=== PATIENT | female | born 1965 | race African-American/Black ===

== ENCOUNTER → 2016-10-25 | Outpatient (CLI) | payer OTHER ==
[~2016-10-25] MED LIST: ALUM5LIQ PO; HYDR-3533 PO; IBUP400T20 PO; METH125I2 IM; PRED1 PO; ROBA750T PO
[2016-10-25 16:47] LABS: AUTOMATED NEUTROPHIL # 4.3 TH/MM3 (1.8-7.7); BASOPHIL % 0.4 % (0.0-2.0); EOSINOPHIL % 0.1 % (0.0-4.0); HEMATOCRIT 38.1 % (35.0-46.0); HEMO FLAGS DIFF FINAL; LYMPH % 15.6 % (9.0-44.0); LYMPHOCYTE # 0.8 TH/MM3 (1.0-4.8); MEAN CELL VOLUME 87.5 FL (80.0-100.0); MEAN CORPUSCULAR HEMOGLOBIN 28.8 PG (27.0-34.0); MEAN CORPUSCULAR HGB CONC 32.9 % (32.0-36.0); MONO % 1.3 % (0.0-8.0); NEUT % 82.6 % (16.0-70.0); PLATELET COUNT 279 TH/MM3 (150-450); RED BLOOD COUNT 4.36 MIL/MM3 (4.00-5.30); RED CELL DISTRIBUTION WIDTH 13.2 % (11.6-17.2); WHITE BLOOD COUNT 5.2 TH/MM3 (4.0-11.0)
[2016-10-25 17:08] LABS: ALT (GPT) 22 U/L (10-53); ANION GAP 10 MEQ/L (5-15); AST (GOT) 12 U/L (15-37); BICARBONATE 23.8 MEQ/L (21.0-32.0); BLOOD UREA NITROGEN 17 MG/DL (7-18); CHLORIDE 107 MEQ/L (98-107); GLOMERULAR FILTRATION RATE 68 ML/MIN (>89); GLUCOSE,FASTING 122 MG/DL (74-99); POTASSIUM 4.1 MEQ/L (3.5-5.1); RHEUMATOID FACTOR TRIGGER LESS THAN 10.0 IU/ML (0.0-14.9); SODIUM (NA) 141 MEQ/L (136-145)
[2016-10-25 17:17] LABS: ALKALINE PHOSPHATASE 69 U/L (45-117); HDL CHOLESTEROL 75.5 MG/DL (40.0-60.0); LDL CHOLESTEROL 137 MG/DL (0-99); TOTAL BILIRUBIN ADULT 0.3 MG/DL (0.2-1.0)
== END ==
LOC: CLAB 15:32
PROVIDERS: ATTEND Family Medicine
DX: G43.909 Migraine, unspecified, not intractable, without status migrainosus (principal); R63.0 Anorexia; E66.9 Obesity, unspecified
CPT/HCPCS: 36415; 80053; 80061; 84443; 85025; 86430

== ENCOUNTER → 2016-12-06 | Outpatient (CLI) | payer OTHER ==
[~2016-12-06] MED LIST changes: -ALUM5LIQ PO; -HYDR-3533 PO
[2016-12-06 16:48] LABS: HEMOGLOBIN A1a 1.1 %; HEMOGLOBIN A1b 0.8 %; HEMOGLOBIN Ao 85.6 %; HEMOGLOBIN LA1C 1.8 %; HEMOGLOBIN P3 3.5 %
== END ==
LOC: CLAB 10:33
PROVIDERS: ATTEND Family Medicine
DX: E03.9 Hypothyroidism, unspecified (principal); R73.01 Impaired fasting glucose
CPT/HCPCS: 36415; 83036; 84443

== ENCOUNTER 2017-04-12 20:44 | Observation (INO) | payer OTHER ==
[~2017-04-12] VITALS: Ht 170.2 cm; Wt 95.0 kg
[~2017-04-12 20:44] MED LIST changes: -METH125I2 IM; +OMEP40CA2 PO; -PRED1 PO; +PRED10 PO; +ROBA500T PO; -ROBA750T PO
[2017-04-12 20:46] VITALS: BP 131/73; PULSE 70; RESP 16; TEMP 98.3; O2SAT 98
[2017-04-12] MEDS ORDERED: SODIUM CHLOR 0.9% 1000 ML INJ 1,000 ML IV SCH (23:28)
[2017-04-12] MEDS ORDERED: SODIUM CHLORIDE 0.9% FLUSH 10 ML FLUSH IV FLUSH PRN (23:30)
[2017-04-12] MEDS ORDERED: MORPHINE SULFATE 4 MG/ML INJ IV PUSH ONE (23:30)
[2017-04-12] MEDS ORDERED: METOCLOPRAMIDE HCL 10 MG/2 ML VIAL IV PUSH ONE (23:30)
[2017-04-13] VITALS (7 sets, daily range): BP systolic 86–134; BP diastolic 42–64; PULSE 54–76; RESP 12–19; TEMP 97.7–98.4; O2SAT 95–98
[2017-04-13 00:07] LABS: AUTOMATED NEUTROPHIL # 4.1 TH/MM3 (1.8-7.7); BASOPHIL # 0.1 TH/MM3 (0-0.2); BASOPHIL % 0.9 % (0.0-2.0); EOSINOPHIL # 0.1 TH/MM3 (0-0.4); EOSINOPHIL % 1.5 % (0.0-4.0); HEMATOCRIT 38.4 % (35.0-46.0); HEMO FLAGS DIFF FINAL; LYMPH % 40.3 % (9.0-44.0); LYMPHOCYTE # 3.2 TH/MM3 (1.0-4.8); MEAN CELL VOLUME 89.3 FL (80.0-100.0); MEAN CORPUSCULAR HEMOGLOBIN 28.3 PG (27.0-34.0); MEAN CORPUSCULAR HGB CONC 31.7 % (32.0-36.0); MONO % 5.2 % (0.0-8.0); NEUT % 52.1 % (16.0-70.0); PLATELET COUNT 307 TH/MM3 (150-450); WHITE BLOOD COUNT 7.8 TH/MM3 (4.0-11.0)
[2017-04-13 00:20] LABS: BICARBONATE 26.5 MEQ/L (21.0-32.0)
[2017-04-13 00:29] LABS: POTASSIUM 3.8 MEQ/L (3.5-5.1)
--- NOTE | 2017-04-13 00:45 | PD ---
HPI Chief Complaint: Headache Time Seen by Provider: 23:24 Travel History International Travel<30 days: No Contact w/Intl Traveler<30days: No Traveled to known affect area: No History of Present Illness HPI 52-year-old female here for evaluation of headache 3 days. The patient describes sharp retro-orbital pain that started suddenly 3 days ago. She reports history of migraines and states that her usual migraine pattern is retro -orbital pain, however this is more severe than usual. She has tried Tylenol and ibuprofen without relief of symptoms. She denies fevers or chills. She is having photophobia as well as nausea. She also complains of neck stiffness. No paresthesias or motor deficits. PFSH Past Medical History Hx Anticoagulant Therapy: No Anemia: Yes Arthritis: Yes Asthma: Yes Autoimmune Disease: Yes (RA) Blood Disorders: No Anxiety: Yes Depression: Yes Heart Rhythm Problems: No Cancer: No Cardiovascular Problems: Yes High Cholesterol: Yes Chemotherapy: No Chest Pain: No Congestive Heart Failure: No COPD: No Cerebrovascular Accident: No Diabetes: No Diminished Hearing: No Endocrine: No Fibromyalgia: Yes Gastrointestinal Disorders: No GERD: No Glaucoma: No Genitourinary: No Headaches: Yes Hepatitis: No Hiatal Hernia: No Herniated Disk: Yes Hypertension: Yes Immune Disorder: Yes Implanted Vascular Access Dvce: No Kidney Stones: No Musculoskeletal: Yes Neurologic: Yes Psychiatric: Yes Reproductive: No Respiratory: No Migraines: Yes Myocardial Infarction: No Radiation Therapy: No Renal Failure: No Seizures: No Sickle Cell Disease: No Sleep Apnea: No Thyroid Disease: No Ulcer: No Tetanus Vaccination: < 5 Years PNEUMOCCOCAL Vaccine (Year): 3 ?: Not LMP: several years : 9 Para: 6 Miscarriage: 3 : 0 Past Surgical History Abdominal Surgery: Yes (gallbladder) AICD: No Appendectomy: No Body Medical Devices: n/a Cardiac Surgery: No Cholecystectomy: Yes Ear Surgery: No Endocrine Surgery: No Eye Surgery: No Genitourinary Surgery: No Gynecologic Surgery: No Hysterectomy: No Neurologic Surgery: No Oral Surgery: No Pacemaker: No Thoracic Surgery: No Other Surgery: Yes (EPIDURAL INJECTION IN BACK) Social History Alcohol Use: No Tobacco Use: No Substance Use: No Allergies-Medications (Allergen,Severity, Reaction): Coded Allergies: ketorolac (Unverified Allergy, Severe, RASH, HIVES, 04/12/17) Reported Meds & Prescriptions Reported Meds & Active Scripts Active Omeprazole 40 Mg Cap 40 Mg PO DAILY Robaxin (Methocarbamol) 500 Mg Tab 500 Mg PO QID Prednisone 10 Mg Tab 10 Mg PO DAILY Reported Ibuprofen 400 Mg Tab 400 Mg PO Q4H PRN Review of Systems Except as stated in HPI: all other systems reviewed are Neg Physical Exam Narrative GENERAL: Well-developed, well-nourished, awake, alert, no apparent distress. SKIN: Focused skin assessment warm/dry. HEAD: Atraumatic. Normocephalic. EYES: Pupils equal and round. No scleral icterus. No injection or drainage. ENT: Mucous membranes pink and moist. NECK: Trachea midline. No JVD. No nuchal rigidity. CARDIOVASCULAR: Regular rate and rhythm. RESPIRATORY: No accessory muscle use. Clear to auscultation. Breath sounds equal bilaterally. GASTROINTESTINAL: Abdomen soft, non-tender, nondistended. MUSCULOSKELETAL: No obvious deformities. No clubbing. No cyanosis. No edema. NEUROLOGICAL: Awake and alert. No obvious cranial nerve deficits. Motor grossly within normal limits. Normal speech. No focal deficits. PSYCHIATRIC: Appropriate mood and affect; insight and judgment normal. Data Data Last Documented VS Vital Signs Date Time Temp Pulse Resp B/P (MAP) Pulse Ox O2 Delivery O2 Flow Rate FiO2 04/13/17 00:00 16 97 Room Air 04/12/17 20:46 98.3 70 Orders Orders Basic Metabolic Panel (Bmp) (04/12/17 23:28) Complete Blood Count With Diff (04/12/17 23:28) Prothrombin Time / Inr (Pt) (04/12/17 23:28) Act Partial Throm Time (Ptt) (04/12/17 23:28) Iv Access Insert/Monitor (04/12/17 23:28) Ecg Monitoring (04/12/17 23:28) Oximetry (04/12/17 23:28) Sodium Chlor 0.9% 1000 Ml Inj (Ns 1000 M (04/12/17 23:28) Sodium Chloride 0.9% Flush (Ns Flush) (04/12/17 23:30) Metoclopramide Inj (Reglan Inj) (04/12/17 23:30) Morphine Inj (Morphine Inj) (04/12/17 23:30) Ct Brain W/O Iv Contrast(Rout) (04/12/17 ) Lipase (04/13/17 00:55) Hepatic Functional Panel (04/13/17 00:55) Ct Abd/Pel W Iv Contrast(Rout) (04/13/17 ) Morphine Inj (Morphine Inj) (04/13/17 01:00) Labs Laboratory Tests Test 04/12/17 23:30 White Blood Count 7.8 TH/MM3 Red Blood Count 4.30 MIL/MM3 Hemoglobin 12.2 GM/DL Hematocrit 38.4 % Mean Corpuscular Volume 89.3 FL Mean Corpuscular Hemoglobin 28.3 PG Mean Corpuscular Hemoglobin Concent 31.7 % Red Cell Distribution Width 14.0 % Platelet Count 307 TH/MM3 Mean Platelet Volume 8.2 FL Neutrophils (%) (Auto) 52.1 % Lymphocytes (%) (Auto) 40.3 % Monocytes (%) (Auto) 5.2 % Eosinophils (%) (Auto) 1.5 % Basophils (%) (Auto) 0.9 % Neutrophils # (Auto) 4.1 TH/MM3 Lymphocytes # (Auto) 3.2 TH/MM3 Monocytes # (Auto) 0.4 TH/MM3 Eosinophils # (Auto) 0.1 TH/MM3 Basophils # (Auto) 0.1 TH/MM3 CBC Comment DIFF FINAL Differential Comment Blood Urea Nitrogen 18 MG/DL Creatinine 1.27 MG/DL Random Glucose 105 MG/DL Calcium Level 8.9 MG/DL Sodium Level 140 MEQ/L Potassium Level 3.8 MEQ/L Chloride Level 105 MEQ/L Carbon Dioxide Level 26.5 MEQ/L Anion Gap 9 MEQ/L Estimat Glomerular Filtration Rate 53 ML/MIN [facility] Medical Decision Making Medical Screen Exam Complete: Yes Emergency Medical Condition: Yes Medical Record Reviewed: Yes Differential Diagnosis Migraine headache, tension headache, cluster headache, SAH, meningitis/ encephalitis Narrative Course Vital signs show heart rate 70, blood pressure 131/73, pulse ox 98% on room air , oral temp of 98.3F. CBC is unremarkable. BMP is remarkable for creatinine 1.27, GFR 53, otherwise unremarkable. INR Patient was given IV morphine and IV Reglan. Soon after receiving these medications the patient began complaining of epigastric abdominal pain. She does have some tenderness in her epigastrium. CT abdomen pelvis will be added. LFTs and lipase were also added to her labs. At approximately 1:00 AM at the end of my shift the patient was signed out to Dr. Ansari to follow-up with LFTs, lipase, CT head, CT abdomen pelvis, reassess and disposition the patient. Felice Cruz MD Apr 13, 2017 00:45
[2017-04-13] MEDS ORDERED: MORPHINE SULFATE 4 MG/ML INJ IV PUSH ONE (01:00)
[2017-04-13] MEDS ORDERED: IOHEXOL 350 MG/ML 10 ML VIAL (for RAD DIAG) IVCONTRAST ONE (01:10)
--- NOTE | 2017-04-13 01:23 | RADRPT ---
EXAM DATE/TIME: 04/13/2017 01:03 [facility] COMPARISON: CT BRAIN W/O CONTRAST, June 29, 2015, 19:41. INDICATIONS : Headaches for 3 days. RADIATION DOSE: 53.45 CTDIvol (mGy) MEDICAL HISTORY : Hypertension. SURGICAL HISTORY : Cholecystectomy. ENCOUNTER: Initial ACUITY: 3 days PAIN SCALE: 10/10 LOCATION: cranial TECHNIQUE: Multiple contiguous axial images were obtained of the head. Using automated exposure control and adj ustment of the mA and/or kV according to patient size, radiation dose was kept as low as reasonably a chievable to obtain optimal diagnostic quality images. DICOM format image data is available electro nically for review and comparison. FINDINGS: CEREBRUM: The ventricles are normal for age. No evidence of midline shift, mass lesion, hemorrhage or acute in farction. No extra-axial fluid collections are seen. POSTERIOR FOSSA: The cerebellum and brainstem are intact. The 4th ventricle is midline. The cerebellopontine angle i s unremarkable. EXTRACRANIAL: The visualized portion of the orbits is intact. SKULL: The calvaria is intact. No evidence of skull fracture. CONCLUSION: Normal examination. Srinath Marsh MD on April 13, 2017 at 1:21 Board Certified Radiologist. This report was verified electronically.
--- NOTE | 2017-04-13 01:26 | RADRPT ---
EXAM DATE/TIME: 04/13/2017 01:08 [facility] COMPARISON: CT ABDOMEN & PELVIS W CONTRAST, August 19, 2015, 12:30. INDICATIONS : Abdomen pain. IV CONTRAST: 100 cc Omnipaque 350 (iohexol) IV ORAL CONTRAST: No oral contrast ingested. RADIATION DOSE: 16.69 CTDIvol (mGy) MEDICAL HISTORY : Hypertension. SURGICAL HISTORY : Cholecystectomy. ENCOUNTER: Initial ACUITY: 1 day PAIN SCALE: 5/10 LOCATION: abdomen TECHNIQUE: Volumetric scanning of the abdomen and pelvis was performed. Using automated exposure control and ad justment of the mA and/or kV according to patient size, radiation dose was kept as low as reasonably achievable to obtain optimal diagnostic quality images. DICOM format image data is available electro nically for review and comparison. FINDINGS: LOWER LUNGS: The visualized lower lungs are clear. LIVER: Homogeneous density without lesion. There is no dilation of the biliary tree. Cholecystectomy clips. SPLEEN: Normal size without lesion. PANCREAS: Within normal limits. KIDNEYS: Normal in size and shape. There is no mass, stone or hydronephrosis. ADRENAL GLANDS: Within normal limits. VASCULAR: There is no aortic aneurysm. BOWEL/MESENTERY: Small hiatal hernia. The stomach, small bowel, and colon demonstrate no acute abnormality. There is no free intraperitoneal air or fluid. ABDOMINAL WALL: Within normal limits. RETROPERITONEUM: There is no lymphadenopathy. BLADDER: No wall thickening or mass. REPRODUCTIVE: Within normal limits. INGUINAL: There is no lymphadenopathy or hernia. MUSCULOSKELETAL: Within normal limits for patient age. CONCLUSION: Normal examination except for small hiatal hernia and cholecystectomy clips. Srinath Marsh MD on April 13, 2017 at 1:23 Board Certified Radiologist. This report was verified electronically.
[2017-04-13] MEDS ORDERED: MIDAZOLAM HCL 5 MG/ML VIAL (1 ML) ONE (02:00)
[2017-04-13] MEDS ORDERED: MIDAZOLAM HCL 2 MG/2 ML VIAL IV PUSH ONE (02:00)
[2017-04-13 02:02] LABS: INDIRECT BILIRUBIN 0.3 MG/DL (0.0-0.8); TOTAL BILIRUBIN ADULT 0.4 MG/DL (0.2-1.0)
[2017-04-13 02:44] LABS: PROTHROMBIN TIME - PATIENT 10.6 SEC (9.8-11.6)
[2017-04-13 02:56] LABS: APTT (PATIENT) 25.9 SEC (24.3-30.1)
[2017-04-13] MEDS ORDERED: MORPHINE SULFATE 8 MG/ML INJ IV PUSH ONE (03:15)
[2017-04-13] MEDS ORDERED: GADODIAMIDE PF 287 MG/ML 20 ML VIAL (for RAD MRI) IVCONTRAST ONE (03:19)
--- NOTE | 2017-04-13 03:24 | PD ---
Physical Exam Date Seen by Provider: Apr 13, 2017 Time Seen by Provider: 03:18 Data Data Last Documented VS Vital Signs Date Time Temp Pulse Resp B/P (MAP) Pulse Ox O2 Delivery O2 Flow Rate FiO2 04/13/17 00:00 16 97 Room Air 04/12/17 20:46 98.3 70 Orders Orders Basic Metabolic Panel (Bmp) (04/12/17 23:28) Complete Blood Count With Diff (04/12/17 23:28) Prothrombin Time / Inr (Pt) (04/12/17 23:28) Act Partial Throm Time (Ptt) (04/12/17 23:28) Iv Access Insert/Monitor (04/12/17 23:28) Ecg Monitoring (04/12/17 23:28) Oximetry (04/12/17 23:28) Sodium Chlor 0.9% 1000 Ml Inj (Ns 1000 M (04/12/17 23:28) Sodium Chloride 0.9% Flush (Ns Flush) (04/12/17 23:30) Metoclopramide Inj (Reglan Inj) (04/12/17 23:30) Morphine Inj (Morphine Inj) (04/12/17 23:30) Ct Brain W/O Iv Contrast(Rout) (04/12/17 ) Lipase (04/13/17 00:55) Hepatic Functional Panel (04/13/17 00:55) Ct Abd/Pel W Iv Contrast(Rout) (04/13/17 ) Morphine Inj (Morphine Inj) (04/13/17 01:00) Iohexol 350 Inj (Omnipaque 350 Inj) (04/13/17 01:10) Midazolam Inj (Versed Inj) (04/13/17 02:00) Total Protein, Csf (04/13/17 01:49) Glucose, Csf (04/13/17 01:49) Csf Cell Count + Differential (04/13/17 01:49) Csf Culture And Gram Stain (04/13/17 01:49) Morphine Inj (Morphine Inj) (04/13/17 03:15) Admit Order (Ed Use Only) (04/13/17 03:16) Labs Laboratory Tests Test 04/12/17 23:30 04/13/17 02:12 White Blood Count 7.8 TH/MM3 Red Blood Count 4.30 MIL/MM3 Hemoglobin 12.2 GM/DL Hematocrit 38.4 % Mean Corpuscular Volume 89.3 FL Mean Corpuscular Hemoglobin 28.3 PG Mean Corpuscular Hemoglobin Concent 31.7 % Red Cell Distribution Width 14.0 % Platelet Count 307 TH/MM3 Mean Platelet Volume 8.2 FL Neutrophils (%) (Auto) 52.1 % Lymphocytes (%) (Auto) 40.3 % Monocytes (%) (Auto) 5.2 % Eosinophils (%) (Auto) 1.5 % Basophils (%) (Auto) 0.9 % Neutrophils # (Auto) 4.1 TH/MM3 Lymphocytes # (Auto) 3.2 TH/MM3 Monocytes # (Auto) 0.4 TH/MM3 Eosinophils # (Auto) 0.1 TH/MM3 Basophils # (Auto) 0.1 TH/MM3 CBC Comment DIFF FINAL Differential Comment Blood Urea Nitrogen 18 MG/DL Creatinine 1.27 MG/DL Random Glucose 105 MG/DL Calcium Level 8.9 MG/DL Sodium Level 140 MEQ/L Potassium Level 3.8 MEQ/L Chloride Level 105 MEQ/L Carbon Dioxide Level 26.5 MEQ/L Anion Gap 9 MEQ/L Estimat Glomerular Filtration Rate 53 ML/MIN Total Bilirubin 0.4 MG/DL Direct Bilirubin 0.1 MG/DL Indirect Bilirubin 0.3 MG/DL Aspartate Amino Transf (AST/SGOT) 25 U/L Alanine Aminotransferase (ALT/SGPT) 32 U/L Alkaline Phosphatase 64 U/L Total Protein 7.7 GM/DL Albumin 3.8 GM/DL Lipase 156 U/L Prothrombin Time 10.6 SEC Prothromb Time International Ratio 1.0 RATIO Activated Partial Thromboplast Time 25.9 SEC [facility] Medical Record Reviewed: Yes Supervised Visit with JOSUE: Yes Interpretation(s) Laboratory Tests Test 04/12/17 23:30 04/13/17 02:12 White Blood Count 7.8 TH/MM3 Red Blood Count 4.30 MIL/MM3 Hemoglobin 12.2 GM/DL Hematocrit 38.4 % Mean Corpuscular Volume 89.3 FL Mean Corpuscular Hemoglobin 28.3 PG Mean Corpuscular Hemoglobin Concent 31.7 % Red Cell Distribution Width 14.0 % Platelet Count 307 TH/MM3 Mean Platelet Volume 8.2 FL Neutrophils (%) (Auto) 52.1 % Lymphocytes (%) (Auto) 40.3 % Monocytes (%) (Auto) 5.2 % Eosinophils (%) (Auto) 1.5 % Basophils (%) (Auto) 0.9 % Neutrophils # (Auto) 4.1 TH/MM3 Lymphocytes # (Auto) 3.2 TH/MM3 Monocytes # (Auto) 0.4 TH/MM3 Eosinophils # (Auto) 0.1 TH/MM3 Basophils # (Auto) 0.1 TH/MM3 CBC Comment DIFF FINAL Differential Comment Blood Urea Nitrogen 18 MG/DL Creatinine 1.27 MG/DL Random Glucose 105 MG/DL Calcium Level 8.9 MG/DL Sodium Level 140 MEQ/L Potassium Level 3.8 MEQ/L Chloride Level 105 MEQ/L Carbon Dioxide Level 26.5 MEQ/L Anion Gap 9 MEQ/L Estimat Glomerular Filtration Rate 53 ML/MIN Total Bilirubin 0.4 MG/DL Direct Bilirubin 0.1 MG/DL Indirect Bilirubin 0.3 MG/DL Aspartate Amino Transf (AST/SGOT) 25 U/L Alanine Aminotransferase (ALT/SGPT) 32 U/L Alkaline Phosphatase 64 U/L Total Protein 7.7 GM/DL Albumin 3.8 GM/DL Lipase 156 U/L Prothrombin Time 10.6 SEC Prothromb Time International Ratio 1.0 RATIO Activated Partial Thromboplast Time 25.9 SEC Last 24 hours Impressions Abdomen/Pelvis CT 04/13/17 0000 Signed Impressions: Service Date/Time: Thursday, April 13, 2017 01:08 - CONCLUSION: Normal examination except for small hiatal hernia and cholecystectomy clips. Srinath Marsh MD Head CT 04/12/17 0000 Signed Impressions: Service Date/Time: Thursday, April 13, 2017 01:03 - CONCLUSION: Normal examination. Srinath Marsh MD Differential Diagnosis MDM: High Differential diagnoses: Subarachnoid hemorrhage, intracranial bleed, aneurysm, pseudotumor, migraine, cluster headache, atypical migraine, temporal arteritis, connective tissue disorder, hypertension, temporal arteritis, sinusitis, sinus headache,malingering Narrative Course This is a 52-year-old black female with a history of migraine headaches that presents with a atypical headache for this patient. She states that her headaches typically are dull in slowly insidious onset in the right frontal area. She states that this headache started 3 days ago as a sudden severe onset of the headache. She states that she felt as if she had been hit by a hammer. She states the pain is a 10/10 initially and after our therapies here in the ER it is only gone down to a 9/10. She has associated nausea vomiting and photophobia. CT scan of the head is negative for acute intracranial pathology. Laboratory tests are unremarkable. 2 attempts at lumbar puncture have been unsuccessful. I discussed the case with Dr. Caceres who is agreed to admit the patient for observation and further evaluation and treatment of her headaches. I do not believe the patient needs an emergent MRA or CTA of the head at this point. I believe this is more of an intractable a typical headache for this patient. I do not find that this is a subarachnoid hemorrhage or an infection. Procedures Procedure Narrative LUMBAR PUNCTURE: The patient is given preprocedural anxiolysis with Versed 2 mg IV. The patient was placed in the seated position bent over a bedside table. The lumbar area of the back was prepped with Betadine and sterilely draped. The L3 -- L4 interspace was infiltrated with 1% lidocaine plain. Number 19 gauge LP needle was placed in the interspace. The needle is felt to pass through the vertebral bodies but is unable to enter the dural space. The needles pushed to the hub. A second attempt is done at L2-L3 once again the needle is buried to the hub and no CSF is noted. The patient is made aware of the limitations of the procedure due to body habitus. Patient tolerated procedure well. Diagnosis Primary Impression: Intractable headache Qualified Codes: R51 - Headache Admitting Information Admitting Physician Requests: Hebert Noel Apr 13, 2017 03:24
[2017-04-13] MEDS: SODIUM CHLOR 0.9% 1000 ML INJ 1,000 ML IV SCH ×3 (03:26→23:26)
[2017-04-13] MEDS ORDERED: PROCHLORPERAZINE INJ 10 MG/2 ML VIAL IV PUSH PRN (03:30)
[2017-04-13] MEDS ORDERED: SODIUM CHLORIDE 0.9% FLUSH 10 ML FLUSH IV FLUSH PRN (03:30)
[2017-04-13] MEDS ORDERED: ACETAMINOPHEN 325 MG TAB PO PRN (03:30)
[2017-04-13] MEDS ORDERED: ACETAMINOPHEN/HYDROcodone 325 MG/5 MG TAB PO PRN (03:30)
[2017-04-13] MEDS ORDERED: MAGNESIUM HYDROXIDE SUSP 30 ML CUP PO PRN (03:30)
[2017-04-13] MEDS ORDERED: BISACODYL 10 MG SUPP RECTAL PRN (03:30)
[2017-04-13] MEDS ORDERED: LACTULOSE SYRUP 20 GM/30 ML CUP PO PRN (03:30)
[2017-04-13] MEDS ORDERED: ONDANSETRON HCL 4 MG/2 ML VIAL IVP PRN (03:30)
[2017-04-13] MEDS ORDERED: SENNOSIDES 8.6 MG TAB PO PRN (03:30)
--- NOTE | 2017-04-13 04:09 | HHI.HP ---
[facility] Vicky Loera MD Admission Diagnosis intractable headache Diagnoses: (1) Intractable headache Diagnosis: Principal (2) Renal insufficiency Diagnosis: Principal Travel History International Travel<30 Days: No Contact w/Intl Traveler <30 Da: No Traveled to Known Affected Are: No History of Present Illness This is a 52-year-old female with a PMH of Migraine who presented to the ER with complaints of severe right sided headache for approx 3 days. States symptoms are typical for her migraine, they're just much more severe than normal. Has taken OTC medications w/ no relief. Not on prophylaxis for migraine, states migraines "aren't too often". Reports photophobia, right eye pain, nausea but no vomiting. On arrival, BP 131/73, HR 70, O2 sat 98% on RA, Afebrile. CBC unremarkable. Creatinine 1.27, previously 1.03 on 10/25/16. INR 1.0. CT Head normal. CT Abd/Pelvis normal. S/p multiple doses of Morphine in addition to Reglan in ER w/ no improvement. LP attempted in ER, however unsuccessful. Review of Systems Except as stated in HPI: all other systems reviewed are Neg ROS: 14 point review of systems otherwise negative. Past Family Social History Past Medical History PMH: Migraine Past Surgical History PAST SURGICAL HISTORY: Cholecystectomy Allergies: Coded Allergies: ketorolac (Unverified Allergy, Severe, RASH, HIVES, 04/12/17) Family History PAST FAMILY HISTORY: Reviewed. No h/o DM or CAD Social History PAST SOCIAL HISTORY: Negative for alcohol, tobacco or drugs. Physical Exam Vital Signs Vital Signs Date Time Temp Pulse Resp B/P (MAP) Pulse Ox O2 Delivery O2 Flow Rate FiO2 04/13/17 00:00 16 97 Room Air 04/12/17 20:46 98.3 70 16 131/73 (92) 98 Room Air Physical Exam PE: GENERAL: Malaise white female in [id number] distress secondary to headache , tearful. HEENT: PERRLA, EOMI. No scleral icterus or conjunctival pallor. No lid lag or facial droop. CARDIOVASCULAR: Regular rate and rhythm. No obvious murmurs to auscultation. No chest tenderness to palpation. RESPIRATORY: No obvious rhonchi or wheezing. Clear to auscultation. Breath sounds equal bilaterally. GASTROINTESTINAL: Abdomen soft, non-tender, nondistended. BS normal. MUSCULOSKELETAL: Extremities without clubbing, cyanosis, or edema. No obvious deformities. NEUROLOGICAL: Awake, alert and oriented x4. No focal neurologic deficits. Moving both upper and lower extremities spontaneously. Laboratory Laboratory Tests Test 04/12/17 23:30 04/13/17 02:12 White Blood Count 7.8 Red Blood Count 4.30 Hemoglobin 12.2 Hematocrit 38.4 Mean Corpuscular Volume 89.3 Mean Corpuscular Hemoglobin 28.3 Mean Corpuscular Hemoglobin Concent 31.7 Red Cell Distribution Width 14.0 Platelet Count 307 Mean Platelet Volume 8.2 Neutrophils (%) (Auto) 52.1 Lymphocytes (%) (Auto) 40.3 Monocytes (%) (Auto) 5.2 Eosinophils (%) (Auto) 1.5 Basophils (%) (Auto) 0.9 Neutrophils # (Auto) 4.1 Lymphocytes # (Auto) 3.2 Monocytes # (Auto) 0.4 Eosinophils # (Auto) 0.1 Basophils # (Auto) 0.1 CBC Comment DIFF FINAL Differential Comment Blood Urea Nitrogen 18 Creatinine 1.27 Random Glucose 105 Calcium Level 8.9 Sodium Level 140 Potassium Level 3.8 Chloride Level 105 Carbon Dioxide Level 26.5 Anion Gap 9 Estimat Glomerular Filtration Rate 53 Total Bilirubin 0.4 Direct Bilirubin 0.1 Indirect Bilirubin 0.3 Aspartate Amino Transf (AST/SGOT) 25 Alanine Aminotransferase (ALT/SGPT) 32 Alkaline Phosphatase 64 Total Protein 7.7 Albumin 3.8 Lipase 156 Prothrombin Time 10.6 Prothromb Time International Ratio 1.0 Activated Partial Thromboplast Time 25.9 Result Diagram: 04/12/17232904/12/172329 Caprini VTE Risk Assessment Caprini VTE Risk Assessment: No/Low Risk (score <= 1) Caprini Risk Assessment Model Point Value = 1 Point Value = 2 Point Value = 3 Point Value = 5 Age 41-60 Minor surgery BMI > 25 kg/m2 Swollen legs Varicose veins or History of unexplained or recurrent spontaneous Oral contraceptives or hormone replacement Sepsis (< 1 month) Serious lung disease, including pneumonia (< 1 month) Abnormal pulmonary function Acute myocardial infarction Congestive heart failure (< 1 month) History of inflammatory bowel disease Medical patient at bed rest Age 61-74 Arthroscopic surgery Major open surgery (> 45 min) Laparoscopic surgery (> 45 min) Malignancy Confined to bed (> 72 hours) Immobilizing plaster cast Central venous access Age >= 75 History of VTE Family history of VTE Factor V Leiden Prothrombin [id number] Lupus anticoagulant Anticardiolipin antibodies Elevated serum homocysteine Heparin-induced thrombocytopenia Other congenital or acquired thrombophilia Stroke (< 1 month) Elective arthroplasty Hip, pelvis, or leg fracture Acute spinal cord injury (< 1 month) Prophylaxis Regimen Total Risk Factor Score Risk Level Prophylaxis Regimen 0-1 Low Early ambulation 2 Moderate Order ONE of the following: *Sequential Compression Device (SCD) *Heparin 5000 units SQ BID 3-4 Higher Order ONE of the following medications: *Heparin 5000 units SQ TID *Enoxaparin/Lovenox 40 mg SQ daily (WT < 150 kg, CrCl > 30 mL/min) *Enoxaparin/Lovenox 30 mg SQ daily (WT < 150 kg, CrCl > 10-29 mL/min) *Enoxaparin/Lovenox 30 mg SQ BID (WT < 150 kg, CrCl > 30 mL/min) AND/OR *Sequential Compression Device (SCD) 5 or more Highest Order ONE of the following medications: *Heparin 5000 units SQ TID (Preferred with Epidurals) *Enoxaparin/Lovenox 40 mg SQ daily (WT < 150 kg, CrCl > 30 mL/min) *Enoxaparin/Lovenox 30 mg SQ daily (WT < 150 kg, CrCl > 10-29 mL/min) *Enoxaparin/Lovenox 30 mg SQ BID (WT < 150 kg, CrCl > 30 mL/min) AND *Sequential Compression Device (SCD) Assessment and Plan Problem List: (1) Intractable headache ICD Code: R51 - Headache Status: Acute (2) Renal insufficiency ICD Code: N28.9 - Disorder of kidney and ureter, unspecified Assessment and Plan A/P: 1. Intractable Headache: h/o Migraine w/ Acute Migrainous Headache, more severe than her usual, symptoms ongoing x3 days, +photophobia, +nausea, +right eye pain. CT Head and CT Abd/Pelvis w/ no acute findings, images reviewed by me. S/p multiple doses of Morphine and Reglan in ER w/ no relief. LP attempted in ER, however unsuccessful, meningitis/encephalitis unlikely based on presentation. Compazine/Benadryl, Dilaudid IV, obtain MRI/MRA for further eval if no improvement. 2. Renal Insufficiency: Creatinine 1.27, previously 1.03 on 10/25/16. IVF for hydration. Repeat labs in am 3. DVT Prophylaxis: SCD/Teds. 4. Social work for d/c planning as needed. 5. Case discussed w/ ER physician at length. Problem Qualifiers (1) Intractable headache: Qualified Codes: R51 - Headache Rebecca Jean-Baptiste MD Apr 13, 2017 04:09
[2017-04-13] MEDS: diphenhydrAMINE HCL 50 MG/ML VIAL IV PUSH PRN ×3 (04:36→23:10)
[2017-04-13] MEDS ORDERED: SODIUM CHLOR 0.9% 1000 ML INJ 1,000 ML IV ONE (05:15)
[2017-04-13] MEDS: DOCUSATE SODIUM 50 MG/SENNA 8.6 MG TAB PO SCH ×2 (08:01→21:12)
[2017-04-13] MEDS: SODIUM CHLORIDE 0.9% FLUSH 10 ML FLUSH IV FLUSH SCH ×2 (08:01→21:00)
[2017-04-13] MEDS: HYDROmorphone HCL PF 1 MG/ML VIAL IV PRN ×3 (08:43→15:21)
--- NOTE | 2017-04-13 12:12 | HHI.PR ---
Subjective Remarks Follow up for migraine. The patient reports continued intractable right frontal/ parietal stabbing 11 out of 10 headache with associated photophobia/ phonophobia. Denies any current nausea but does report decreased appetite. She feels her right eye is blurry and reports pressure behind the eye. Denies fevers , cough, congestion, or sore throat. Denies any unilateral numbness/weakness. She states she's tried Imitrex and Fioricet in the past for her migraines however it only "take the edge off" but does not relieve the pain. She has never seen a neurologist. She has never been on any migraine prevention medications such as Topamax. Objective Vitals Vital Signs Date Time Temp Pulse Resp B/P (MAP) Pulse Ox O2 Delivery O2 Flow Rate FiO2 04/13/17 11:42 97.8 59 16 128/64 (85) 98 04/13/17 07:41 04/13/17 07:40 98.1 54 19 115/56 (75) 95 04/13/17 05:00 76 12 86/42 (57) 96 Room Air 04/13/17 00:00 16 97 Room Air 04/12/17 20:46 98.3 70 16 131/73 (92) 98 Room Air I/O 04/12/17 04/12/17 04/12/17 04/13/17 04/13/17 04/13/17 07:00 15:00 23:00 07:00 15:00 23:00 Intake Total 2000 ml Balance 2000 ml Intake IV Total 2000 ml Result Diagram: 04/12/17 2330 04/12/17 2330 Imaging Last Impressions Abdomen/Pelvis CT 04/13/17 0000 Signed Impressions: Service Date/Time: Thursday, April 13, 2017 01:08 - CONCLUSION: Normal examination except for small hiatal hernia and cholecystectomy clips. Srinath Marsh MD Head CT 04/12/17 0000 Signed Impressions: Service Date/Time: Thursday, April 13, 2017 01:03 - CONCLUSION: Normal examination. Srinath Marsh MD Objective Remarks GENERAL: Well-nourished, well-developed middle aged female patient in [facility]. SKIN: Warm and dry. No rash. HEENT: Normocephalic. Atraumatic. Pupils equal and round. Mucous membranes pink and moist. NECK: Supple. Trachea midline. CARDIOVASCULAR: Regular rate and rhythm. S1, S2 noted. No murmur appreciated. RESPIRATORY: No accessory muscle use. Clear to auscultation. Breath sounds equal bilaterally. GASTROINTESTINAL: Abdomen soft, non-tender, nondistended. Normoactive bowel sounds x4. MUSCULOSKELETAL: No obvious deformities. Extremities without clubbing, cyanosis , or edema. NEUROLOGICAL: Awake and alert. No obvious cranial nerve deficits. Motor grossly within normal limits. Normal speech. PSYCHIATRIC: Appropriate mood and affect; insight and judgment normal. Medications and IVs Current Medications Medications (Trade) Dose Ordered Sig/Aracely Route Start Time Stop Time Status Last Admin (Compazine Inj) 10 mg Q4H PRN IV PUSH 04/13/17 03:30 04/13/17 04:37 (Benadryl Inj) 25 mg Q4H PRN IV PUSH 04/13/17 03:30 04/13/17 04:36 Sodium Chloride 1,000 ml @ 100 mls/hr Q10H IV 04/13/17 03:26 04/13/17 03:26 (NS Flush) 2 ml UNSCH PRN IV FLUSH 04/13/17 03:30 (NS Flush) 2 ml BID IV FLUSH 04/13/17 09:00 (Zofran Inj) 4 mg Q6H PRN IVP 04/13/17 03:30 (Tylenol) 650 mg Q6H PRN PO 04/13/17 03:30 ([place] 5-325 Mg) 1 tab Q4H PRN PO 04/13/17 03:30 (Dilaudid Pf Inj) 1 mg Q3H PRN IV 04/13/17 03:30 04/13/17 08:43 (Sandy-Colace) 1 tab BID PO 04/13/17 09:00 (Milk Of Magnesia Liq) 30 ml Q12H PRN PO 04/13/17 03:30 (Senokot) 17.2 mg Q12H PRN PO 04/13/17 03:30 (Dulcolax Supp) 10 mg DAILY PRN RECTAL 04/13/17 03:30 (Lactulose Liq) 30 ml DAILY PRN PO 04/13/17 03:30 A/P Problem List: (1) Intractable headache ICD Code: R51 - Headache Status: Acute (2) Renal insufficiency ICD Code: N28.9 - Disorder of kidney and ureter, unspecified Assessment and Plan 52-year-old female with a PMH of Migraine who presented to the ER with complaints of severe right sided headache for approx 3 days. Intractable Migraine: h/o Migraine w/ Acute Migrainous Headache, more severe than her usual, symptoms ongoing x3 days, +photophobia/nausea/right eye pain. CT Head and CT Abd/Pelvis w/ no acute findings, images reviewed by me. S/p multiple doses of Morphine and Reglan in ER w/ no relief. LP attempted in ER, however unsuccessful, meningitis/encephalitis unlikely based on presentation ( afebrile, no leukocytosis). Continue Compazine/Benadryl, Dilaudid IV prn. Ordered brain MRI/MRA for further eval. Consider neurology consult if no improvement. Renal Insufficiency: Creatinine 1.27, previously 1.03 on 10/25/16. Give IVF for hydration. Repeat labs in am. DVT Prophylaxis: SCD/Teds. Discharge Planning Discharge pending brain MRI/MRA and further clinical improvement. Hopefully discharge tomorrow. Problem Qualifiers (1) Intractable headache: Qualified Codes: R51 - Headache Philly Martin PA-C Apr 13, 2017 12:12 pm
--- NOTE | 2017-04-13 14:19 | RADRPT ---
EXAM DATE/TIME: 04/13/2017 13:52 [facility] COMPARISON: MRA BRAIN W/O CONTRAST, December 18, 2013, 20:40. INDICATIONS : Cephalgia. MEDICAL HISTORY : Hypertension. SURGICAL HISTORY : Cholecystectomy. ENCOUNTER: Initial ACUITY: 1 day PAIN SCORE: 7/10 LOCATION: cranial Please note a normal MRA of the brain does not entirely exclude the possibility of a small aneurysm, nor the possibility of distal intracranial vessel disease. TECHNIQUE: 3D time of flight MRA was performed. Source images, multiplanar STS MIP, and 3D volume MIP reconstru ctions were reviewed. FINDINGS: There is excellent visualization of the major intracranial arteries out to the second-order branch ve ssels. There is no evidence for aneurysm, vessel truncation or stenosis, and no evidence for vascula r malformation. There is persistent nonvisualization of the left A1 segment of the anterior cerebral artery. Likely normal variant. CONCLUSION: Stable nonvisualization of the left A1 segment of the intercerebral artery. No evidence of aneurysm o r other vascular abnormality. The imaged portion of the brain demonstrates no evidence of infarct.. Sonya Baker MD on April 13, 2017 at 14:15 Board Certified Radiologist. This report was verified electronically.
[2017-04-13 14:32] LABS: BETA HCG QUANT 4 MIU/ML (0-5)
--- NOTE | 2017-04-13 14:35 | RADRPT ---
EXAM DATE/TIME: 04/13/2017 13:52 [facility] COMPARISON: MRI BRAIN W & W/O CONTRAST, December 18, 2013, 20:40. INDICATIONS : Cephalgia. CONTRAST: 19 cc Omniscan (gadodiamide) IV MEDICAL HISTORY : Hypertension. SURGICAL HISTORY : Cholecystectomy. ENCOUNTER: Initial ACUITY: 1 day PAIN SCORE: 7/10 LOCATION: cranial TECHNIQUE: Multiplanar, multisequence MRI of the brain was performed both prior to and following the administrat ion of paramagnetic contrast. FINDINGS: CEREBRUM: The ventricles are normal for age. No evidence of midline shift, mass lesion, hemorrhage or acute in farction. No extraaxial fluid collections are seen. The pituitary gland and suprasellar cistern are normal in configuration. WHITE MATTER: No significant signal abnormalities are seen in the white matter. POSTERIOR FOSSA: The cerebellum and brainstem are intact. The 4th ventricle is midline. The cerebellopontine angle is unremarkable. The cerebellar tonsils are normal in position. DIFFUSION IMAGING: No focal areas of restricted diffusion are seen. No evidence of acute infarction. EXTRACRANIAL: The visualized portions of the orbits and paranasal sinuses are unremarkable. POST-CONTRAST: No abnormal areas of parenchymal or dural enhancement. No evidence of blood-brain barrier breakdown. CONCLUSION: Normal examination. Sonya Baker MD on April 13, 2017 at 14:32 Board Certified Radiologist. This report was verified electronically.
[2017-04-13] MEDS: DEXAMETHASONE SOD PHOS 4 MG/ML VIAL IV PUSH SCH (21:12)
--- NOTE | 2017-04-13 22:35 | MB ---
cc: BRIANDA CARMICHAEL DATE OF CONSULTATION 04/13/17 REASON FOR CONSULTATION Intractable migraines. HISTORY OF PRESENT ILLNESS Ms. Almeida is a 52-year-old -[place] female with past medical history of chronic migraine who presented to the [facility] emergency room with complaint of severe right-sided headache that has been ongoing for three days. She states that bright lights and loud noises aggravate her and she states that she has nausea and vomiting. The patient does not follow up with a neurologist. She uses [id number] medications. She is not on preventative or traditional migraine medications. She states that she has been having migraines for 3-4 years. In the emergency room, neurologic assessment, blood work and head CT scan was normal. An LP was attempted in the emergency room that was unsuccessful and she received multiple doses of morphine and Reglan with no improvement. There is no associated speech difficulty, double vision, weakness of an extremity, fever or recent head trauma. During the encounter. the patient had an episode of vomiting. The patient states that she is under severe stress in the past few days. REVIEW OF SYSTEMS A 12 point review of systems is negative except what is stated in the HPI. PAST MEDICAL HISTORY Migraine PAST SURGICAL HISTORY Cholecystectomy. ALLERGIES KETORALAC FAMILY HISTORY Noncontributory SOCIAL HISTORY Negative for alcohol, tobacco or illicit drug abuse. MEDICATIONS Xxvp-kzl-momylss medications. PHYSICAL EXAMINATION GENERAL: Awake, alert, in moderate distress and feeling nauseous and she vomited once and in pain. The lights are turned off in the room. HEENT: Atraumatic, normocephalic, intact hearing. Intact vision. CARDIOVASCULAR: Regular rate and rhythm. RESPIRATORY: Clear to auscultation. No wheezes GASTROINTESTINAL: Soft, no tenderness. MUSCULOSKELETAL: No clubbing, no cyanosis or edema. NEUROLOGIC: Awake, alert, oriented to time, person and place. Intact speech. Intact speech content. No dysphasia. No dysarthria. Cranial nerves II-XII are grossly intact. Pupils are equal and reacting to light, no nystagmus. No diplopia. No facial asymmetry. No signs of meningeal irritation.No temporal tenderness.5/5 bilateral symmetrical upper & lower extremity normal tone.No abnormal movement. Intact sensation B/L symmetrical to light touch and temperature.Yemlrr-wc-yhha, vkda-wj-fqem are intact. LABORATORY DATA WBC 7.8, hemoglobin 12-point to platelet 307, sodium 140, potassium 3.80, and side, anion gap nine, creatinine 1.7, calcium 8.9, LFT normal. INR one. IMAGING STUDIES - Head CT scan without contrast - Normal examination. - Head MRA stable, non-visualization of left A1 segment of the SANDIE artery, no evidence of aneurysm or vascular abnormality. - Brain MRI with and without contrast, normal examination. IMPRESSION 1. Breakthrough migraine episode 2. Renal insufficiency 3. Anxiety. PLAN 1. Neuro checks q. four hourly. 2. IV fluids. 3. Dexamethasone 4 mg twice daily IV 4. Discontinue [place] and Dilaudid 5. Benadryl 25 mg IV p.r.n. 6. Zofran injection 4 mg six hourly 7. Discontinue Promethazine 7. Keep the room dimly lit and minimal noises Thank you for the opportunity to participate in the care of your patient. MD ISA Melendez/ /9:50 PM /10:16 PM ROGELIO
[2017-04-14] MEDS ORDERED: IMIPRAMINE HCL 25 MG TAB PO PRN (01:30)
--- NOTE | 2017-04-14 01:46 | RADRPT ---
EXAM DATE/TIME: 04/14/2017 01:27 [facility] COMPARISON: No previous studies available for comparison. INDICATIONS : Headaches. RADIATION DOSE: 36.06 CTDIvol (mGy) MEDICAL HISTORY : Hypertension. SURGICAL HISTORY : Cholecystectomy. ENCOUNTER: Subsequent ACUITY: 1 day PAIN SCALE: 10/10 LOCATION: cranial TECHNIQUE: Multiple contiguous axial images were obtained of the head. Using automated exposure control and adj ustment of the mA and/or kV according to patient size, radiation dose was kept as low as reasonably a chievable to obtain optimal diagnostic quality images. DICOM format image data is available electro nically for review and comparison. FINDINGS: CEREBRUM: The ventricles are normal for age. No evidence of midline shift, mass lesion, hemorrhage or acute in farction. No extra-axial fluid collections are seen. POSTERIOR FOSSA: The cerebellum and brainstem are intact. The 4th ventricle is midline. The cerebellopontine angle i s unremarkable. EXTRACRANIAL: The visualized portion of the orbits is intact. SKULL: The calvaria is intact. No evidence of skull fracture. CONCLUSION: Normal examination. Srinath Marsh MD on April 14, 2017 at 1:44 Board Certified Radiologist. This report was verified electronically.
[2017-04-14] MEDS ORDERED: SUMAtriptan SUCCINATE 25 MG TAB PO PRN (02:00)
[2017-04-14 05:39] VITALS: BP 123/76; PULSE 75; RESP 18; TEMP 98.1; O2SAT 96
[2017-04-14 08:23] VITALS: BP 102/65; PULSE 72; RESP 20; TEMP 97.9; O2SAT 98
[2017-04-14] MEDS ORDERED: PROCHLORPERAZINE INJ 10 MG/2 ML VIAL IV PUSH ONE (08:30)
--- NOTE | 2017-04-14 08:40 | HHI.PR ---
Subjective Remarks Follow up for migraine. The patient reports continued / intractable constant stabbing headache associated with photophobia. She has intermittent nausea but no vomiting. She is specifically requesting pain medications to just knock her out. She states what she was getting yesterday (dilaudid) was helping more than the Imitrex and Decadron. Explained opioids can actually worsen headaches. She is requesting anything to help her sleep. She has no other medical complaints including no chest pain, palpitations, shortness of breath, or abdominal pains. Objective Vitals Vital Signs Date Time Temp Pulse Resp B/P (MAP) Pulse Ox O2 Delivery O2 Flow Rate FiO2 04/14/17 08:23 97.9 72 20 102/65 (77) 98 04/14/17 05:39 98.1 75 18 123/76 (92) 96 04/14/17 03:10 18 04/14/17 00:22 18 04/13/17 22:58 98.1 71 18 115/61 (79) 98 04/13/17 19:55 98.4 67 18 104/58 (73) 98 04/13/17 15:39 97.7 63 17 134/63 (86) 95 04/13/17 11:42 97.8 59 16 128/64 (85) 98 I/O 04/13/17 04/13/17 04/13/17 04/14/17 04/14/17 04/14/17 07:00 15:00 23:00 07:00 15:00 23:00 Intake Total 2000 ml Balance 2000 ml Intake IV Total 2000 ml Result Diagram: 04/12/17 2330 04/12/17 2330 Imaging Last Impressions Head CT 04/14/17 0000 Signed Impressions: Service Date/Time: Friday, April 14, 2017 01:27 - CONCLUSION: Normal examination. Srinath Marsh MD Head Magnetic Resonance Angiography 04/13/17 0000 Signed Impressions: Service Date/Time: Thursday, April 13, 2017 13:52 - CONCLUSION: Stable nonvisualization of the left A1 segment of the intercerebral artery. No evidence of aneurysm or other vascular abnormality. The imaged portion of the brain demonstrates no evidence of infarct.. Sonya Baker MD Brain MRI 04/13/17 0000 Signed Impressions: Service Date/Time: Thursday, April 13, 2017 13:52 - CONCLUSION: Normal examination. Sonya Baker MD Abdomen/Pelvis CT 04/13/17 0000 Signed Impressions: Service Date/Time: Thursday, April 13, 2017 01:08 - CONCLUSION: Normal examination except for small hiatal hernia and cholecystectomy clips. Srinath Marsh MD Objective Remarks GENERAL: Well-nourished, well-developed middle aged female patient in [facility]. SKIN: Warm and dry. No rash. HEENT: Normocephalic. Atraumatic. Pupils equal and round. Mucous membranes pink and moist. CARDIOVASCULAR: Regular rate and rhythm. S1, S2 noted. No murmur appreciated. RESPIRATORY: No accessory muscle use. Clear to auscultation. Breath sounds equal bilaterally. GASTROINTESTINAL: Abdomen soft, non-tender, nondistended. Normoactive bowel sounds x4. MUSCULOSKELETAL: No obvious deformities. Extremities without clubbing, cyanosis , or edema. NEUROLOGICAL: Awake and alert. No obvious cranial nerve deficits. Motor grossly within normal limits. Normal speech. PSYCHIATRIC: Appropriate mood and affect; insight and judgment normal. Medications and IVs Current Medications Medications (Trade) Dose Ordered Sig/Aracely Route Start Time Stop Time Status Last Admin (Benadryl Inj) 25 mg Q4H PRN IV PUSH 04/13/17 03:30 04/13/17 23:10 Sodium Chloride 1,000 ml @ 100 mls/hr Q10H IV 04/13/17 03:26 04/13/17 23:26 (NS Flush) 2 ml UNSCH PRN IV FLUSH 04/13/17 03:30 (NS Flush) 2 ml BID IV FLUSH 04/13/17 09:00 (Zofran Inj) 4 mg Q6H PRN IVP 04/13/17 03:30 04/13/17 18:57 (Tylenol) 650 mg Q6H PRN PO 04/13/17 03:30 04/13/17 23:10 (Sandy-Colace) 1 tab BID PO 04/13/17 09:00 04/13/17 21:12 (Milk Of Magnesia Liq) 30 ml Q12H PRN PO 04/13/17 03:30 (Senokot) 17.2 mg Q12H PRN PO 04/13/17 03:30 (Dulcolax Supp) 10 mg DAILY PRN RECTAL 04/13/17 03:30 (Lactulose Liq) 30 ml DAILY PRN PO 04/13/17 03:30 (Decadron Inj) 4 mg Q12H IV PUSH 04/13/17 20:00 04/13/17 21:12 (Imitrex) 25 mg Q3H PRN PO 04/14/17 02:00 04/14/17 02:03 (Reglan Inj) 10 mg ONCE ONCE IV PUSH 04/14/17 08:30 04/14/17 08:31 UNV (Compazine Inj) 10 mg ONCE ONCE IV PUSH 04/14/17 08:30 04/14/17 08:31 UNV (Benadryl Inj) 50 mg ONCE ONCE IV PUSH 04/14/17 08:30 04/14/17 08:31 UNV A/P Problem List: (1) Intractable headache ICD Code: R51 - Headache Status: Acute (2) Renal insufficiency ICD Code: N28.9 - Disorder of kidney and ureter, unspecified Assessment and Plan 52-year-old female with a PMH of Migraine who presented to the ER with complaints of severe right sided headache for approx 3 days. Intractable Migraine: h/o Migraine w/ Acute Migrainous Headache, more severe than her usual, symptoms ongoing x3 days, +photophobia/nausea/right eye pain. CT Head and CT Abd/Pelvis w/ no acute findings, images reviewed by me. Brain MRI /MRA unremarkable. S/p multiple doses of Morphine and Reglan in ER w/ no relief. LP attempted in ER, however unsuccessful, meningitis/encephalitis unlikely based on presentation (afebrile, no leukocytosis). Continue Compazine/ Benadryl. Consult neurology, appreciated assistance, added Imitrex prn, IV Decadron 4mg bid. Monitor for improvement. Renal Insufficiency: Creatinine 1.27, previously 1.03 on 10/25/16. Give IVF for hydration. Repeat labs pending. DVT Prophylaxis: SCD/Teds. Discharge Planning Discharge pending further clinical improvement and clearance from neurology. Hopefully discharge later today. Problem Qualifiers (1) Intractable headache: Qualified Codes: R51 - Headache Philly Martin PA-C Apr 14, 2017 8:40 am
[2017-04-14] MEDS ORDERED: METOCLOPRAMIDE HCL 10 MG/2 ML VIAL IV PUSH ONE (08:45)
[2017-04-14] MEDS ORDERED: diphenhydrAMINE HCL 50 MG/ML VIAL IV PUSH ONE (08:45)
[2017-04-14 09:16] LABS: AUTOMATED NEUTROPHIL # 4.2 TH/MM3 (1.8-7.7); BASOPHIL % 0.6 % (0.0-2.0); EOSINOPHIL % 0.1 % (0.0-4.0); HEMO FLAGS DIFF FINAL; LYMPHOCYTE # 0.8 TH/MM3 (1.0-4.8); MEAN CELL VOLUME 88.8 FL (80.0-100.0); MEAN CORPUSCULAR HEMOGLOBIN 28.6 PG (27.0-34.0); MEAN CORPUSCULAR HGB CONC 32.2 % (32.0-36.0); MONO % 2.9 % (0.0-8.0); NEUT % 81.4 % (16.0-70.0); PLATELET COUNT 236 TH/MM3 (150-450); RED BLOOD COUNT 3.94 MIL/MM3 (4.00-5.30); RED CELL DISTRIBUTION WIDTH 13.5 % (11.6-17.2); WHITE BLOOD COUNT 5.1 TH/MM3 (4.0-11.0)
[2017-04-14] MEDS: DEXAMETHASONE SOD PHOS 4 MG/ML VIAL IV PUSH SCH ×2 (09:26→21:18)
[2017-04-14] MEDS: DOCUSATE SODIUM 50 MG/SENNA 8.6 MG TAB PO SCH ×2 (09:26→21:19)
[2017-04-14] MEDS: SODIUM CHLORIDE 0.9% FLUSH 10 ML FLUSH IV FLUSH SCH ×2 (09:27→21:00)
[2017-04-14 09:34] LABS: ALKALINE PHOSPHATASE 58 U/L (45-117); ALT (GPT) 56 U/L (10-53); ANION GAP 8 MEQ/L (5-15); AST (GOT) 25 U/L (15-37); BICARBONATE 21.7 MEQ/L (21.0-32.0); BLOOD UREA NITROGEN 8 MG/DL (7-18); CHLORIDE 110 MEQ/L (98-107); GLOMERULAR FILTRATION RATE 89 ML/MIN (>89); SODIUM (NA) 140 MEQ/L (136-145); TOTAL BILIRUBIN ADULT 0.3 MG/DL (0.2-1.0)
[2017-04-14] MEDS: SODIUM CHLOR 0.9% 1000 ML INJ 1,000 ML IV SCH ×2 (10:25→19:26)
[2017-04-14 12:23] VITALS: BP 110/60; PULSE 70; RESP 18; TEMP 97.8; O2SAT 96
--- NOTE | 2017-04-14 12:52 | HHI.PR ---
Review/Management Diagnosis 1. Breakthrough migraine headache episode 2. Chronic migraine, uses OTC medications 3. Renal insufficiency 4. Anxiety. Plan - Neuro checks q. four hourly. - IV fluids. - Dexamethasone 4 mg twice daily IV - Indomethacin 25 mg bid, with food - Discontinued [place] and Dilaudid - Benadryl 25 mg IV p.r.n. - Zofran 4mg disintegrating tablets Q12h - Discontinued Promethazine - Nortriptyline 10mg nocte - Keep the room dimly lit and minimal noises Diagnosis/Plan: Subjective Subjective Comments Complained of migraine headache after mid night, no nausea or vomiting I was called, I recommended Imitrex 25mg po Patient states that Imitrex did not help, however, with no reported side effects This morning, she looks better, has mild right sided migraine headache, mild blurred vision, no vomiting, mild nausea Brain imaging is unremarkable Patient was on Prednisone 10mg daily by her PCP, for the headache, patient requested adding it to the medication list Active Medications Current Medications Medications (Trade) Dose Ordered Sig/Aracely Route Start Time Stop Time Status Last Admin (Benadryl Inj) 25 mg Q4H PRN IV PUSH 04/13/17 03:30 04/13/17 23:10 Sodium Chloride 1,000 ml @ 100 mls/hr Q10H IV 04/13/17 03:26 04/14/17 10:25 (NS Flush) 2 ml UNSCH PRN IV FLUSH 04/13/17 03:30 (NS Flush) 2 ml BID IV FLUSH 04/13/17 09:00 04/14/17 09:27 (Zofran Inj) 4 mg Q6H PRN IVP 04/13/17 03:30 04/13/17 18:57 (Tylenol) 650 mg Q6H PRN PO 04/13/17 03:30 04/13/17 23:10 (Sandy-Colace) 1 tab BID PO 04/13/17 09:00 04/14/17 09:26 (Milk Of Magnesia Liq) 30 ml Q12H PRN PO 04/13/17 03:30 (Senokot) 17.2 mg Q12H PRN PO 04/13/17 03:30 (Dulcolax Supp) 10 mg DAILY PRN RECTAL 04/13/17 03:30 (Lactulose Liq) 30 ml DAILY PRN PO 04/13/17 03:30 (Decadron Inj) 4 mg Q12H IV PUSH 04/13/17 20:00 04/14/17 09:26 (Imitrex) 25 mg Q3H PRN PO 04/14/17 02:00 04/14/17 02:03 Allergies Allergies Coded Allergies ketorolac (Unverified Allergy, Severe, RASH, HIVES, 04/12/17) Review of Systems All other ROS: ROS reviewed as documented in chart Exam I&O / VS Vital Signs Date Time Temp Pulse Resp B/P (MAP) Pulse Ox O2 Delivery O2 Flow Rate FiO2 04/14/17 12:23 97.8 70 18 110/60 (77) 96 04/14/17 08:23 97.9 72 20 102/65 (77) 98 04/14/17 05:39 98.1 75 18 123/76 (92) 96 04/14/17 03:10 18 04/14/17 00:22 18 04/13/17 22:58 98.1 71 18 115/61 (79) 98 04/13/17 19:55 98.4 67 18 104/58 (73) 98 04/13/17 15:39 97.7 63 17 134/63 (86) 95 General: Alert and Oriented, No acute distress, Mild distress Eye: PERRL, EOMI, Vision unchanged Respiratory: Lungs CTA, Non-labored respirations Cardiology: Normal rate, Intact pulses Neurologic: Alert, Oriented, Normal sensory, Normal motor, No focal defects, CN II-XII intact, Normal DTR's Psychiatric: Cooperative, Appropriate mood & affect Objective Radiology Results Last [address] 04/14/17 0000 Signed Impressions: Service Date/Time: Friday, April 14, 2017 01:27 - CONCLUSION: Normal examination. Srinath Marsh MD Head Magnetic Resonance Angiography 04/13/17 0000 Signed Impressions: Service Date/Time: Thursday, April 13, 2017 13:52 - CONCLUSION: Stable nonvisualization of the left A1 segment of the intercerebral artery. No evidence of aneurysm or other vascular abnormality. The imaged portion of the brain demonstrates no evidence of infarct.. Sonya Baker MD Brain MRI 04/13/17 0000 Signed Impressions: Service Date/Time: Thursday, April 13, 2017 13:52 - CONCLUSION: Normal examination. Sonya Baker MD Abdomen/Pelvis CT 04/13/17 0000 Signed Impressions: Service Date/Time: Thursday, April 13, 2017 01:08 - CONCLUSION: Normal examination except for small hiatal hernia and cholecystectomy clips. Srinath Marsh MD Head CT 04/12/17 0000 Signed Impressions: Service Date/Time: Thursday, April 13, 2017 01:03 - CONCLUSION: Normal examination. Srinath Marsh MD Micro and Labs Laboratory Tests Test 04/13/17 13:41 04/14/17 08:32 Human Chorionic Gonadotropin, Quant 4 White Blood Count 5.1 Red Blood Count 3.94 Hemoglobin 11.3 Hematocrit 35.0 Mean Corpuscular Volume 88.8 Mean Corpuscular Hemoglobin 28.6 Mean Corpuscular Hemoglobin Concent 32.2 Red Cell Distribution Width 13.5 Platelet Count 236 Mean Platelet Volume 8.6 Neutrophils (%) (Auto) 81.4 Lymphocytes (%) (Auto) 15.0 Monocytes (%) (Auto) 2.9 Eosinophils (%) (Auto) 0.1 Basophils (%) (Auto) 0.6 Neutrophils # (Auto) 4.2 Lymphocytes # (Auto) 0.8 Monocytes # (Auto) 0.1 Eosinophils # (Auto) 0.0 Basophils # (Auto) 0.0 CBC Comment DIFF FINAL Differential Comment Blood Urea Nitrogen 8 Creatinine 0.81 Random Glucose 98 Total Protein 6.4 Albumin 3.1 Calcium Level 8.6 Alkaline Phosphatase 58 Aspartate Amino Transf (AST/SGOT) 25 Alanine Aminotransferase (ALT/SGPT) 56 Total Bilirubin 0.3 Sodium Level 140 Potassium Level 4.0 Chloride Level 110 Carbon Dioxide Level 21.7 Anion Gap 8 Estimat Glomerular Filtration Rate 89 Chantelle Mora MD Apr 14, 2017 12:52
[2017-04-14] MEDS: ONDANSETRON ODT 4 MG TAB PO SCH ×2 (15:13→21:19)
[2017-04-14] MEDS: INDOMETHACIN 50 MG CAP PO SCH ×2 (15:13→21:19)
[2017-04-14 16:18] VITALS: BP 116/65; PULSE 84; RESP 20; TEMP 98.2; O2SAT 95
[2017-04-14 20:26] VITALS: BP 119/73; PULSE 85; RESP 21; TEMP 98.7; O2SAT 100
[2017-04-14] MEDS ORDERED: NORTRIPTYLINE HCL 10 MG CAP PO SCH (21:00)
[2017-04-15 00:05] VITALS: BP 139/79; PULSE 74; RESP 21; TEMP 97.8; O2SAT 100
[2017-04-15 04:37] VITALS: BP 110/60; PULSE 66; RESP 18; TEMP 97.8; O2SAT 99
[2017-04-15] MEDS: SODIUM CHLOR 0.9% 1000 ML INJ 1,000 ML IV SCH (04:39)
[2017-04-15] MEDS: diphenhydrAMINE HCL 50 MG/ML VIAL IV PUSH PRN (04:45)
[2017-04-15 07:45] VITALS: BP 105/53; PULSE 74; RESP 20; TEMP 97.5; O2SAT 95
[2017-04-15] MEDS: ONDANSETRON ODT 4 MG TAB PO SCH (08:21)
[2017-04-15] MEDS: SODIUM CHLORIDE 0.9% FLUSH 10 ML FLUSH IV FLUSH SCH (08:21)
[2017-04-15] MEDS: DEXAMETHASONE SOD PHOS 4 MG/ML VIAL IV PUSH SCH (08:21)
[2017-04-15] MEDS: INDOMETHACIN 50 MG CAP PO SCH (08:21)
[2017-04-15] MEDS: DOCUSATE SODIUM 50 MG/SENNA 8.6 MG TAB PO SCH (08:21)
[2017-04-15] MEDS ORDERED: ONDA4TAB7 SL (10:35)
[2017-04-15] MEDS ORDERED: NORT25CA PO (10:35)
[2017-04-15] MEDS ORDERED: INDO50CA PO (10:35)
[2017-04-15] MEDS ORDERED: PRED10 PO (10:35)
--- NOTE | 2017-04-15 10:36 | HHI.DCPOC ---
Discharge Care Plan Diagnosis: (1) Migraine Goals to Promote Your Health * To prevent worsening of your condition and complications * To maintain your health at the optimal level Directions to Meet Your Goals Take your medications as prescribed Follow your dietary instruction Follow activity as directed Keep your appointments as scheduled Take your immunizations and boosters as scheduled If your symptoms worsen call your PCP, if no PCP go to Urgent Care Center or Emergency Room Smoking is Dangerous to Your Health. Avoid second hand smoke Call the 24-hour hour crisis hotline for domestic abuse at Philly Martin PA-C Apr 15, 2017 10:36 am
--- NOTE | 2017-04-15 10:47 | HHI.DS ---
cc: Vicky Loera MD; Chantelle Mora MD Discharge Summary Admission Date Apr 13, 2017 at 03:18 Discharge Date: Apr 15, 2017 Admitting Diagnosis intractable headache (1) Migraine ICD Code: G43.909 - Migraine, unspecified, not intractable, without status migrainosus Diagnosis: Principal Status: Acute (2) Intractable headache ICD Code: R51 - Headache Diagnosis: Principal Status: Acute (3) Renal insufficiency ICD Code: N28.9 - Disorder of kidney and ureter, unspecified Diagnosis: Secondary Status: Resolved Procedures None. Brief History - From Admission This is a 52-year-old female with a PMH of Migraine who presented to the ER with complaints of severe right sided headache for approx 3 days. States symptoms are typical for her migraine, they're just much more severe than normal. Has taken OTC medications w/ no relief. Not on prophylaxis for migraine, states migraines "aren't too often". Reports photophobia, right eye pain, nausea but no vomiting. On arrival, BP 131/73, HR 70, O2 sat 98% on RA, Afebrile. CBC unremarkable. Creatinine 1.27, previously 1.03 on 10/25/16. INR 1.0. CT Head normal. CT Abd/Pelvis normal. S/p multiple doses of Morphine in addition to Reglan in ER w/ no improvement. LP attempted in ER, however unsuccessful. CBC/BMP: 04/14/17 0832 04/14/17 0832 Significant Findings Laboratory Tests Test 04/12/17 23:30 04/13/17 02:12 04/13/17 13:41 04/14/17 08:32 Mean Corpuscular Hemoglobin Concent 31.7 % (32.0-36.0) Creatinine 1.27 MG/DL (0.50-1.00) Estimat Glomerular Filtration Rate 53 ML/MIN (>89) Red Blood Count 3.94 MIL/MM3 (4.00-5.30) Hemoglobin 11.3 GM/DL (11.6-15.3) Neutrophils (%) (Auto) 81.4 % (16.0-70.0) Lymphocytes # (Auto) 0.8 TH/MM3 (1.0-4.8) Albumin 3.1 GM/DL (3.4-5.0) Alanine Aminotransferase (ALT/SGPT) 56 U/L (10-53) Chloride Level 110 MEQ/L (98-107) Imaging Last Impressions Head CT 04/14/17 0000 Signed Impressions: Service Date/Time: Friday, April 14, 2017 01:27 - CONCLUSION: Normal examination. Srinath Marsh MD Head Magnetic Resonance Angiography 04/13/17 0000 Signed Impressions: Service Date/Time: Thursday, April 13, 2017 13:52 - CONCLUSION: Stable nonvisualization of the left A1 segment of the intercerebral artery. No evidence of aneurysm or other vascular abnormality. The imaged portion of the brain demonstrates no evidence of infarct.. Sonya Baker MD Brain MRI 04/13/17 0000 Signed Impressions: Service Date/Time: Thursday, April 13, 2017 13:52 - CONCLUSION: Normal examination. Sonya Baker MD Abdomen/Pelvis CT 04/13/17 0000 Signed Impressions: Service Date/Time: Thursday, April 13, 2017 01:08 - CONCLUSION: Normal examination except for small hiatal hernia and cholecystectomy clips. Srinath Marsh MD PE at Discharge GENERAL: Well-nourished, well-developed middle aged female patient in [facility]. SKIN: Warm and dry. No rash. HEENT: Normocephalic. Atraumatic. Pupils equal and round. Mucous membranes pink and moist. CARDIOVASCULAR: Regular rate and rhythm. S1, S2 noted. No murmur appreciated. RESPIRATORY: No accessory muscle use. Clear to auscultation. Breath sounds equal bilaterally. GASTROINTESTINAL: Abdomen soft, non-tender, nondistended. Normoactive bowel sounds x4. MUSCULOSKELETAL: No obvious deformities. Extremities without clubbing, cyanosis , or edema. NEUROLOGICAL: Awake and alert. No obvious cranial nerve deficits. Motor grossly within normal limits. Normal speech. PSYCHIATRIC: Appropriate mood and affect; insight and judgment normal. Pt update on day of discharge Follow up for migraine. The patient is sound asleep, loudly snoring from her room upon my arrival. She awakens and reports her headache is better but still present. She reports occasional nausea, but no vomiting, and she has been able to tolerate oral intake ([employer] at bedside). Denies fevers/chills or neck pain. She feels comfortable going home. Hospital Course 52-year-old female with a PMH of Migraine who presented to the ER with complaints of severe right sided headache for approx 3 days. Intractable Migraine: h/o Migraine w/ Acute Migrainous Headache, more severe than her usual, symptoms ongoing x3 days, +photophobia/nausea/right eye pain. CT Head and CT Abd/Pelvis w/ no acute findings, images reviewed by me. Brain MRI /MRA unremarkable. S/p multiple doses of Morphine and Reglan in ER w/ no relief. LP attempted in ER, however unsuccessful, meningitis/encephalitis unlikely based on presentation (afebrile, no leukocytosis). Initially given IV dilaudid however still with headache, therefore opioids discontinued by neurology. Continued Compazine/Benadryl. Consult neurology, added Imitrex prn, IV Decadron 4mg bid. Still no improvement. Neuro added amitriptyline at bedtime , and indomethacin bid. Patient's headache improved, no further nausea/vomiting , tolerating oral intake. She was discharge with prescriptions for indomethacin , amitriptyline, prednisone taper, zofran prn. Renal Insufficiency: Creatinine 1.27, previously 1.03 on 10/25/16. Give IVF for hydration. Repeat labs showed improvement, Cr 0.81. Resolved. Pt Condition on Discharge: Stable Discharge Disposition: Discharge Home Discharge Time: <= 30 minutes Discharge Instructions DIET: Follow Instructions for: As Tolerated, No Restrictions Activities you can perform: Regular-No Restrictions Follow up Referrals: Neurology - 1 Week with Chantelle Mora MD PCP Follow-up - 1 Week with Vicky Loera MD New Medications: Nortriptyline (Nortriptyline) 25 Mg Cap 25 MG PO HS for migraine prevention, #30 CAP 0 Refills Ondansetron Odt (Ondansetron Odt) 4 Mg Tab 4 MG SL Q6HR PRN for Nausea/Vomiting, #28 TAB 0 Refills Indomethacin (Indomethacin) 50 Mg Cap 50 MG PO Q12HR for migraine, #28 CAP Take with food, milk, or antacids to decrease stomach adverse effects. Changed Medications: Prednisone (Prednisone) 10 Mg Tab 10 MG PO DAILY for migraine, #42 TAB 2 Refills (Changed from: 30) Take 20mg twice a day for 3 days, Then take 10mg twice a day for 3 days, Then take 10mg once daily. Continued Medications: Methocarbamol (Robaxin) 500 Mg Tab 500 MG PO QID for Muscle Spasm, #120 TAB 3 Refills Omeprazole (Omeprazole) 40 Mg Cap 40 MG PO DAILY, #30 CAP 5 Refills Discontinued Medications: Ibuprofen (Ibuprofen) 400 Mg Tab 400 MG PO Q4H PRN for PAIN SCALE 5 TO 10, TAB 0 Refills Philly Martin PA-C Apr 15, 2017 10:47
[2017-06-07] MEDS ORDERED: CYCL1TAB29 PO (20:43)
== END 2017-04-15 12:54 | disposition home or self-care (01) ==
LOC: NEPD 20:44 → NEDA 04-13 03:18 → NEPHCDU 04-13 07:34 → NEPGCP 04-13 18:10
PROVIDERS: ADMIT Family Medicine; ATTEND Family Medicine
DX: G43.909 Migraine, unspecified, not intractable, without status migrainosus (principal); G44.85 Primary stabbing headache; N28.9 Disorder of kidney and ureter, unspecified; I10 Essential (primary) hypertension; M79.7 Fibromyalgia; K44.9 Diaphragmatic hernia without obstruction or gangrene; J45.909 Unspecified asthma, uncomplicated; F41.9 Anxiety disorder, unspecified; E78.00 Pure hypercholesterolemia, unspecified; Z79.01 Long term (current) use of anticoagulants
CPT/HCPCS: 62270; 70450; 70544; 70553; 74177; 80048; 80053; 80076; 83690; 84702; 85025; 85610; 85730; 96361; 96374; 96375; 96376; 99285; A9579; G0378; J0780; J1100; J1170; J1200; J2250; J2270; J2405; J2765; J7030; Q9967

== ENCOUNTER 2017-06-07 17:30 | Emergency (ER) | payer OTHER ==
[~2017-06-07] VITALS: Ht 170.2 cm; Wt 91.0 kg
[~2017-06-07 17:30] MED LIST changes: -IBUP400T20 PO; +INDO50CA PO; +NORT25CA PO; +ONDA4TAB7 SL
[2017-06-07 17:32] VITALS: BP 148/76; PULSE 98; RESP 20; TEMP 98.4; O2SAT 98
[2017-06-07] MEDS ORDERED: ONDANSETRON HCL 4 MG/2 ML VIAL IV PUSH ONE (18:00)
[2017-06-07] MEDS ORDERED: MORPHINE SULFATE 4 MG/ML INJ IV PUSH ONE (18:00)
[2017-06-07] MEDS ORDERED: SODIUM CHLORIDE 0.9% FLUSH 10 ML FLUSH IVF PRN (18:00)
[2017-06-07 18:02] VITALS: RESP 18; O2SAT 99
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
[2017-06-07 18:53] LABS: AUTOMATED NEUTROPHIL # 3.7 TH/MM3 (1.8-7.7); BASOPHIL % 0.7 % (0.0-2.0); EOSINOPHIL # 0.1 TH/MM3 (0-0.4); HEMATOCRIT 37.7 % (35.0-46.0); HEMO FLAGS DIFF FINAL; LYMPH % 29.3 % (9.0-44.0); LYMPHOCYTE # 1.8 TH/MM3 (1.0-4.8); MEAN CELL VOLUME 88.5 FL (80.0-100.0); MEAN CORPUSCULAR HEMOGLOBIN 29.2 PG (27.0-34.0); MEAN CORPUSCULAR HGB CONC 33.1 % (32.0-36.0); MONO % 7.4 % (0.0-8.0); NEUT % 60.6 % (16.0-70.0); PLATELET COUNT 272 TH/MM3 (150-450); RED BLOOD COUNT 4.26 MIL/MM3 (4.00-5.30); RED CELL DISTRIBUTION WIDTH 13.6 % (11.6-17.2)
[2017-06-07 18:55] VITALS: RESP 17
[2017-06-07 19:07] LABS: APTT (PATIENT) 23.7 SEC (24.3-30.1); INTERNATIONAL NORMALIZED RATIO 0.9 RATIO; PROTHROMBIN TIME - PATIENT 10.4 SEC (9.8-11.6)
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
[2017-06-07] MEDS ORDERED: IOHEXOL 350 MG/ML 10 ML VIAL (for RAD DIAG) IVCONTRAST ONE (19:15)
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
[2017-06-07 19:33] LABS: BICARBONATE 26.3 MEQ/L (21.0-32.0)
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
[2017-06-07 19:38] LABS: POTASSIUM 3.6 MEQ/L (3.5-5.1)
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
[2017-06-07] MEDS ORDERED: CYCLOBENZAPRINE HCL 10 MG TAB PO ONE (20:15)
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
[2017-06-07] MEDS ORDERED: CYCL10TA PO (20:43)
[2017-06-07] MEDS ORDERED: HYDR-3533 PO (20:43)
[2017-06-07] MEDS ORDERED: IBUPROFEN 600 MG TAB PO ONE (20:45)
== END 2017-06-07 21:50 | disposition home or self-care (01) ==
LOC: NEPD 17:30
DX: S39.012A Strain of muscle, fascia and tendon of lower back, initial encounter (principal); S93.401A Sprain of unspecified ligament of right ankle, initial encounter; M79.7 Fibromyalgia; M06.9 Rheumatoid arthritis, unspecified; V49.49XA Driver injured in collision with other motor vehicles in traffic accident, initial encounter; Y92.410 Unspecified street and highway as the place of occurrence of the external cause
CPT/HCPCS: 70450; 71010; 71260; 72125; 72128; 72131; 72170; 73060; 73130; 73564; 73590; 73610; 73630; 74177; 80048; 85025; 85610; 85730; 96374; 96375; 99285; J2270; J2405; L0150; Q9967

== ENCOUNTER 2017-08-29 21:11 | Emergency (ER) | payer OTHER ==
[~2017-08-29] VITALS: Ht 170.2 cm; Wt 53.2 kg
[~2017-08-29 21:11] MED LIST changes: +CYCL10TA PO; +HYDR-3533 PO; -INDO50CA PO; -NORT25CA PO; -OMEP40CA2 PO; -ONDA4TAB7 SL; -ROBA500T PO
[2017-08-29 21:14] VITALS: BP 150/76; PULSE 100; RESP 16; TEMP 98.5; O2SAT 99
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
[2017-08-30] MEDS ORDERED: MEDR4PAK PO (19:23)
== END 2017-08-29 21:21 | disposition left against medical advice (07) ==
LOC: NED 21:11
DX: Z76.89 Persons encountering health services in other specified circumstances (principal)
CPT/HCPCS: 99281

== ENCOUNTER 2017-08-30 12:31 | Emergency (ER) | payer OTHER ==
[~2017-08-30] VITALS: Ht 170.2 cm; Wt 77.3 kg
[2017-08-30 12:33] VITALS: BP 122/62; PULSE 104; RESP 12; TEMP 98.3; O2SAT 98
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
[2017-08-30] MEDS ORDERED: MEDR4PAK PO (19:23)
--- NOTE | 2017-08-30 19:23 | PD ---
HPI Chief Complaint: Musculoskeletal Complaint Time Seen by Provider: 19:21 Travel History International Travel<30 days: No Contact w/Intl Traveler<30days: No Traveled to known affect area: No History of Present Illness HPI She 2-year-old female presents to emergency department for evaluation of possible DVT in her right lower extremity. Patient has had right lower extremity pain for 2 months with no preceding injury. She states it is aching in nature radiates from her hip to her ankle. She has had x-ray imaging outpatient with her primary care provider. She states that they have not identified anything. They called her and advised she come to emergency department for evaluation of possible DVT. Denies any chest or tightness. No difficulty breathing. No history DVT. Patient has no other symptoms to report. PFSH Past Medical History Hx Anticoagulant Therapy: No Anemia: Yes Arthritis: Yes Asthma: Yes Autoimmune Disease: Yes (RA) Blood Disorders: No Anxiety: No Depression: No Heart Rhythm Problems: No Cancer: No Cardiovascular Problems: Yes High Cholesterol: Yes Chemotherapy: No Chest Pain: No Congestive Heart Failure: No COPD: No Cerebrovascular Accident: No Diabetes: No Diminished Hearing: No Endocrine: No Fibromyalgia: Yes Gastrointestinal Disorders: No GERD: No Glaucoma: No Genitourinary: No Headaches: Yes Hepatitis: No Hiatal Hernia: No Herniated Disk: Yes Hypertension: Yes Immune Disorder: Yes Implanted Vascular Access Dvce: No Kidney Stones: No Musculoskeletal: Yes (muscle spasms) Neurologic: Yes (migraines) Psychiatric: No Reproductive: No Respiratory: No Migraines: Yes Myocardial Infarction: No Radiation Therapy: No Renal Failure: No Seizures: No Sickle Cell Disease: No Sleep Apnea: No Thyroid Disease: No Ulcer: No PNEUMOCCOCAL Vaccine (Year): 3 : 9 Para: 6 Miscarriage: 3 : 0 Past Surgical History Abdominal Surgery: Yes (gallbladder) AICD: No Appendectomy: No Body Medical Devices: n/a Cardiac Surgery: No Cholecystectomy: Yes Ear Surgery: No Endocrine Surgery: No Eye Surgery: No Genitourinary Surgery: No Gynecologic Surgery: No Hysterectomy: No Neurologic Surgery: No Oral Surgery: No Pacemaker: No Thoracic Surgery: No Other Surgery: Yes (EPIDURAL INJECTION IN BACK) Social History Alcohol Use: No Tobacco Use: No Substance Use: No Allergies-Medications (Allergen,Severity, Reaction): Coded Allergies: ketorolac (Verified Allergy, Severe, RASH, HIVES, 06/07/17) Reported Meds & Prescriptions Reported Meds & Active Scripts Active Medrol Dosepak (Methylprednisolone) 4 Mg Dspk 4 Mg PO DIRECTED Per Pharmacist direction Flexeril (Cyclobenzaprine HCl) 10 Mg Tab 10 Mg PO TID Lortab (Hydrocodone-Acetaminophen) 5-325 Mg Tab 1 Tab PO Q6H PRN Prednisone 10 Mg Tab 10 Mg PO DAILY Take 20mg twice a day for 3 days, Then take 10mg twice a day for 3 days, Then take 10mg once daily. Review of Systems Except as stated in HPI: all other systems reviewed are Neg Physical Exam Narrative GENERAL: Well-nourished, well-developed female patient, ambulatory no acute distress. SKIN: Focused skin assessment warm/dry. HEAD: Normocephalic. EYES: No scleral icterus. No injection or drainage. NECK: Supple, trachea midline. No JVD or lymphadenopathy. CARDIOVASCULAR: Regular rate and rhythm without murmurs, gallops, or rubs. RESPIRATORY: Breath sounds equal bilaterally. No accessory muscle use. GASTROINTESTINAL: Abdomen soft, non-tender, nondistended. MUSCULOSKELETAL: No cyanosis, or edema. No limitations in range of motion. No tenderness elicited palpation of the posterior calf. Pulses are palpable. Cap refill within normal limits. BACK: Nontender without obvious deformity. No CVA tenderness. Data Data Last Documented VS Vital Signs Date Time Temp Pulse Resp B/P (MAP) Pulse Ox O2 Delivery O2 Flow Rate FiO2 08/30/17 19:30 08/30/17 12:33 98.3 104 12 98 Orders Orders Us Leg Venous Doppler (08/30/17 ) Dexamethasone Inj (Decadron Inj) (08/30/17 19:30) Ed Discharge Order (08/30/17 19:23) MDM Medical Decision Making Medical Screen Exam Complete: Yes Emergency Medical Condition: Yes Medical Record Reviewed: Yes Differential Diagnosis Muscle strain versus DVT versus osteoarthritic pain Narrative Course 52 year old female presents emergency department for evaluation right leg pain. Patient appears without distress. Ultrasound is complete negative for DVT. I have encouraged her to follow-up outpatient with primary care provider. Offer pain control. She agrees to this. She agrees to return immediately with any acute worsening symptoms. Diagnosis Primary Impression: Right leg pain Referrals: Orthopaedic Surgeon Primary Care Physician Patient Instructions: General Instructions, Leg Pain (ED) Additional Instructions: Follow up with your primary care provider Seek orthopedic evaluation Vascular evaluation may be warranted Return to ED with acute worsening of symptoms Med/Other Pt SpecificInfo: Prescription(s) given Scripts Methylprednisolone Dosepak (Medrol Dosepak) 4 Mg Dspk 4 MG PO DIRECTED, #1 DSPK 0 Refills Per Pharmacist direction Prov: Keren Fernandez 08/30/17 Disposition: 01 DISCHARGE HOME Condition: Stable Keren Fernandez Aug 30, 2017 19:23
[2017-08-30] MEDS ORDERED: DEXAMETHASONE SOD PHOS 4 MG/ML VIAL IM ONE (19:30)
== END 2017-08-30 19:48 | disposition home or self-care (01) ==
LOC: NED 12:31 → NEPK 19:48
DX: M79.604 Pain in right leg (principal)
CPT/HCPCS: 93971; 96372

== ENCOUNTER 2017-10-04 16:26 | Emergency (ER) | payer OTHER ==
[~2017-10-04] VITALS: Ht 170.2 cm; Wt 80.0 kg
[~2017-10-04 16:26] MED LIST changes: +MEDR4PAK PO
[2017-10-04] MEDS ORDERED: IOHEXOL 350 MG/ML 10 ML VIAL (for RAD DIAG) IVCONTRAST ONE (16:27)
[2017-10-04 16:33] VITALS: BP 144/87; PULSE 108; RESP 16; TEMP 98.3; O2SAT 100
[2017-10-04] MEDS ORDERED: HYDR-3516 PO ×2 (16:55→22:05)
[2017-10-04] MEDS ORDERED: HYDROmorphone HCL PF 2 MG/ML VIAL IV PUSH ONE ×2 (17:15→22:15)
[2017-10-04] MEDS ORDERED: ONDANSETRON HCL 4 MG/2 ML VIAL IV PUSH ONE ×2 (17:15→22:15)
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
[2017-10-04 18:25] LABS: AUTOMATED NEUTROPHIL # 3.6 TH/MM3 (1.8-7.7); BASOPHIL # 0.1 TH/MM3 (0-0.2); EOSINOPHIL # 0.1 TH/MM3 (0-0.4); EOSINOPHIL % 1.8 % (0.0-4.0); HEMOGLOBIN 12.9 GM/DL (11.6-15.3); LYMPH % 32.5 % (9.0-44.0); LYMPHOCYTE # 2.1 TH/MM3 (1.0-4.8); MEAN CORPUSCULAR HEMOGLOBIN 29.4 PG (27.0-34.0); MEAN PLATELET VOLUME 8.8 FL (7.0-11.0); MONO % 8.1 % (0.0-8.0); MONOCYTE # 0.5 TH/MM3 (0-0.9); NEUT % 56.6 % (16.0-70.0); PLATELET COUNT 320 TH/MM3 (150-450); RED BLOOD COUNT 4.39 MIL/MM3 (4.00-5.30); WHITE BLOOD COUNT 6.4 TH/MM3 (4.0-11.0)
[2017-10-04 18:28] LABS: PROTHROMBIN TIME - PATIENT 10.4 SEC (9.8-11.6)
[2017-10-04 18:42] LABS: BICARBONATE 25.4 MEQ/L (21.0-32.0); CALCIUM 9.2 MG/DL (8.5-10.1); CREATININE 1.1 MG/DL (0.50-1.00); MAGNESIUM 2.1 MG/DL (1.5-2.5)
[2017-10-04 18:45] VITALS: BP 138/81; PULSE 102; RESP 17; TEMP 97.8; O2SAT 99
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
[2017-10-04 21:45] VITALS: BP 120/74; PULSE 97; RESP 16; O2SAT 100
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
[2017-10-04] MEDS ORDERED: ROBA500T PO (22:05)
[2017-10-04] MEDS ORDERED: PRED20 PO (22:05)
[2017-10-04] MEDS ORDERED: DICL75TA PO (22:05)
[2017-10-04] MEDS ORDERED: IBUPROFEN 800 MG TAB PO ONE (22:15)
[2017-10-04] MEDS ORDERED: ACETAMINOPHEN/HYDROcodone 325 MG/10 MG TAB PO ONE (22:15)
== END 2017-10-04 22:36 | disposition home or self-care (01) ==
LOC: NEPC 16:26
DX: S13.4XXA Sprain of ligaments of cervical spine, initial encounter (principal); S90.01XA Contusion of right ankle, initial encounter; M54.5 Low back pain; R51 Headache; I10 Essential (primary) hypertension; M06.9 Rheumatoid arthritis, unspecified; E78.00 Pure hypercholesterolemia, unspecified; M79.7 Fibromyalgia; V49.88XA Car occupant (driver) (passenger) injured in other specified transport accidents, initial encounter; Z79.899 Other long term (current) drug therapy; Z86.2 Personal history of diseases of the blood and blood-forming organs and certain disorders involving the immune mechanism; Z87.09 Personal history of other diseases of the respiratory system; Z86.69 Personal history of other diseases of the nervous system and sense organs
CPT/HCPCS: 70450; 71045; 71260; 72125; 72129; 72132; 73610; 73630; 74177; 80048; 83735; 85025; 85610; 85730; 96374; 96375; 99285; J1170; J2405; L0150; Q9967

== ENCOUNTER 2018-07-11 18:41 | Observation (INO) ==
[2018-07-11] MEDS ORDERED: MethylPREDNISolone Sod Succinate Inj 125 MG/2 ML Vial IV.PUSH ONE (19:20)
[2018-07-11] MEDS ORDERED: Acetaminophen 325 MG Tablet PO ONE (19:22)
[2018-07-11] MEDS ORDERED: Sod Chloride 0.9% Inj 1,000 ML IV.SIG SCH (19:30)
--- NOTE | 2018-07-11 19:32 | ED ---
HPI General Chief complaint: Respiratory Symptoms Stated complaint: asthma Time Seen by Provider: 07/11/18 19:14 Source: patient Mode of arrival: ambulatory Limitations: no limitations History of Present Illness HPI narrative: 53-year-old female with history of asthma, lupus, here for evaluation of 1 week of worsening shortness of breath, cough, fevers, generalized malaise. Cough is productive of yellowish sputum. She did notice some specks of blood yesterday evening. Shortness of breath is at rest, worse with exertion. She also complains of having a right-sided chest pain that has been going on for 1 month, described as pressure. She denies any known history of cardiac disease. Related Data Home Medications Medication Instructions Recorded Confirmed cyclobenzaprine 10 mg PO TID PRN 02/16/18 07/12/18 hydrocodone-acetaminophen 1 tab PO Q4-6H PRN 02/16/18 07/12/18 Allergies Allergy/AdvReac Type Severity Reaction Status Date / Time ketorolac Allergy Severe RASH, HIVES Verified 07/11/18 19:04 Review of Systems ROS: all other systems reviewed are negative [facility] Social History Social History Substance History: No History of Abuse Second Hand Smoke Exposure: No Smoking Status: Never smoker How Often Do You Have a Drink Containing Alcohol: Never Recent Travel in [facility] within the Last 8 Weeks: No Recent Out of Country Travel within the Last 8 Weeks: No Exam Narrative Exam Narrative: GENERAL: Well-developed, well-nourished, sitting comfortably, no acute distress. SKIN: Focused skin assessment warm/dry. HEAD: Atraumatic. Normocephalic. EYES: Pupils equal and round. No scleral icterus. No injection or drainage. ENT: Mucous membranes pink and moist. Normal pharynx. NECK: Trachea midline. No JVD. CARDIOVASCULAR: Tachycardic, rate 115, regular. RESPIRATORY: No accessory muscle use. Clear to auscultation. Breath sounds equal bilaterally. GASTROINTESTINAL: Abdomen soft, non-tender, nondistended. MUSCULOSKELETAL: No obvious deformities. No clubbing. No cyanosis. No edema. Left lower extremity knee immobilizer in place. NEUROLOGICAL: Awake and alert. No obvious cranial nerve deficits. Motor grossly within normal limits. Normal speech. PSYCHIATRIC: Appropriate mood and affect; insight and judgment normal. Procedures Ultrasound POC Ultrasound Procedure: Ultrasound-guided peripheral IV insertion: Because of difficult IV access, I was asked by my nurse to place an ultrasound- guided IV. Using a linear ultrasound probe, a 20-gauge long IV catheter was placed in the patient's right forearm. The site was prepped with ChloraPrep prior to insertion. The procedure was tolerated well. No complications. Course Initial Documented Vital Signs Temperature 99.1 F 07/11/18 19:01 Pulse Rate 112 H 07/11/18 19:01 Respiratory Rate 24 07/11/18 19:01 Blood Pressure 138/64 07/11/18 19:01 Pulse Oximetry 100 07/11/18 19:01 Last Documented Vital Signs Temperature 99.1 F 07/11/18 19:01 Pulse Rate 101 H 07/12/18 01:36 Respiratory Rate 18 07/12/18 01:36 Blood Pressure 140/72 07/11/18 23:04 Pulse Oximetry 96 07/11/18 23:04 Medical Decision Making MDM Narrative Medical decision making narrative: Labs, vitals, and imaging studies were reviewed and were reviewed with the patient. CBC is remarkable for slight anemia with a hemoglobin of 11.2. CMP is remarkable for potassium 2.9. This lab was performed after the patient had received 3 DuoNeb treatments, which is likely caused her slight hypokalemia. Cardiac enzymes are negative. BNP is 20. D-dimer is 0.23. Chest x-ray shows no acute disease. Patient was given 3 DuoNeb treatments and IV Solu-Medrol. On reassessment she still had some dyspnea, therefore was given another albuterol treatment. After this treatment the patient reports that her respiratory symptoms have significantly improved, however she is complaining of diffuse body pains and aches. Patient's heart rate is also significantly improved after receiving a liter of normal saline IV bolus. She will be given a dose of morphine and reassessed. 12:20 AM: On reassessment the patient tells me that her dyspnea has returned. She is coughing repetitively. Her heart rate has worsened 120, sinus. She does have some poor air movement bilaterally. No wheezes. Although her d- dimer is negative, she does have history of lupus, and CT pulmonary angiogram was ordered to rule out PE and to further evaluate her lungs. She will also be given another albuterol nebulized treatment CT pulmonary angiogram: CONCLUSION:1. Negative for pulmonary embolic disease. No lung consolidation or effusion. 1:35 AM: The patient was made aware of CTA findings. On reassessment she states that she still feels short of breath and has generalized body aches despite receiving a dose of morphine. Heart rate remains tachycardic at a rate of 105. She will be given him another liter of normal saline IV. Earlier on during the patient's ED visit, she was given an oral dose of 500 mg of azithromycin in anticipation that she may be able to be discharged home for asthma exacerbation/bronchitis. On exertion she becomes short of breath with a decrease in her O2 saturation and tachycardic. Because of this she will be admitted for overnight observation. 1:50 AM: After the patient had returned from CTA, a liter of normal saline was hung and attached to her IV in her right forearm. Shortly after she began to complain of pain, and there was a moderate amount of edema noted. Her IV has infiltrated. The IV fluids were discontinued, and a cool compress will be applied. Case discussed with hospitalist Dr. Sharpe who will admit the patient to the hospital service for observation. Medical Screen Exam Complete: Yes Emergency Medical Condition: Yes Differential Diagnosis Differential Diagnosis: Asthma exacerbation, pneumonia, bronchitis, PE, ACS, pneumothorax, influenza, Lab Data Result diagrams: 07/11/18 22:10 07/11/18 22:10 Lab Results 07/11/18 07/11/18 07/11/18 Range/Units 22:10 22:10 22:10 WBC 8.1 (4.0-11.0) th/mm3 RBC 3.84 L (4.00-5.30) mil/mm3 Hgb 11.2 L (11.6-15.3) gm/dL Hct 33.4 L (35.0-46.0) % MCV 87.0 (80.0-100.0) fL MCH 29.2 (27.0-34.0) pg MCHC 33.5 (32.0-36.0) % RDW 13.2 (11.6-17.2) % Plt Count 268 (150-450) th/mm3 MPV 8.4 (7.0-11.0) fL Neut % (Auto) 54.6 (16.0-70.0) % Lymph % (Auto) 34.0 (9.0-44.0) % Dup[place] % (Auto) 9.6 H (0.0-8.0) % Eos % (Auto) 1.3 (0.0-4.0) % Baso % (Auto) 0.5 (0.0-2.0) % Neut # (Auto) 4.4 (1.8-7.7) th/mm3 Lymph # (Auto) 2.7 (1.0-4.8) th/mm3 [place] # (Auto) 0.8 (0.0-0.9) th/mm3 Eos # (Auto) 0.1 (0.0-0.4) th/mm3 Baso # (Auto) 0.0 (0.0-0.2) th/mm3 WBC Differential . Differential Comment Auto diff final PT 10.1 (9.8-11.6) sec INR 1.0 Ratio APTT 26.6 (23.4-31.7) sec D-Dimer Quant (PE/DVT) 0.23 (0.00-0.50) mg/L FEU Puncture Site Patient Temperature O2 Saturation (90-100) % ABG pH (7.380-7.420) ABG pCO2 (38-42) mmHg ABG pO2 (61-120) mmHg ABG HCO3 (22-26) mmol/L ABG O2 Content (12.0-20.0) Vol % ABG Base Excess (-2-2) mmol/L ABG Methemoglobin (0-2) % Ivck Test Hemoglobin (12.0-16.0) G/DL Carboxyhemoglobin (0-4) % Inspired O2 % Critical Value Sodium 143 (136-145) meq/L Potassium 2.9 L* (3.5-5.1) meq/L Chloride 106 (98-107) meq/L Carbon Dioxide 27.3 (21.0-32.0) meq/L Anion Gap 10 (5-15) meq/L BUN 14 (7-18) mg/dL Creatinine 1.16 H (0.50-1.00) mg/dL Estimated GFR 59 L (>89) mL/min Random Glucose 119 H (74-106) mg/dL Lactic Acid (0.4-2.0) mmol/L Calcium 8.8 (8.5-10.1) mg/dL Magnesium 1.9 (1.5-2.5) mg/dL Total Bilirubin 0.2 (0.2-1.0) mg/dL AST 21 (15-37) U/L ALT 35 (10-53) U/L Alkaline Phosphatase 80 (45-117) U/L Total Creatine Kinase 109 (26-192) U/L CK-MB (CK-2) Less than 1.0 (0.5-3.6) ng/mL Troponin I Less than 0.02 L (0.02-0.05) ng/mL B-Natriuretic Peptide (0-100) pg/mL Total Protein 7.6 (6.4-8.2) g/dL Albumin 3.9 (3.4-5.0) g/dL 07/11/18 07/11/18 07/11/18 Range/Units 22:10 22:10 22:30 WBC (4.0-11.0) th/mm3 RBC (4.00-5.30) mil/mm3 Hgb (11.6-15.3) gm/dL Hct (35.0-46.0) % MCV (80.0-100.0) fL MCH (27.0-34.0) pg MCHC (32.0-36.0) % RDW (11.6-17.2) % Plt Count (150-450) th/mm3 MPV (7.0-11.0) fL Neut % (Auto) (16.0-70.0) % Lymph % (Auto) (9.0-44.0) % Dup[place] % (Auto) (0.0-8.0) % Eos % (Auto) (0.0-4.0) % Baso % (Auto) (0.0-2.0) % Neut # (Auto) (1.8-7.7) th/mm3 Lymph # (Auto) (1.0-4.8) th/mm3 [place] # (Auto) (0.0-0.9) th/mm3 Eos # (Auto) (0.0-0.4) th/mm3 Baso # (Auto) (0.0-0.2) th/mm3 WBC Differential Differential Comment PT (9.8-11.6) sec INR Ratio APTT (23.4-31.7) sec D-Dimer Quant (PE/DVT) (0.00-0.50) mg/L FEU Puncture Site Right radial Patient Temperature 98.6 O2 Saturation 95 (90-100) % ABG pH 7.41 (7.380-7.420) ABG pCO2 37 L (38-42) mmHg ABG pO2 89 (61-120) mmHg ABG HCO3 23 (22-26) mmol/L ABG O2 Content 12.8 (12.0-20.0) Vol % ABG Base Excess -1.0 (-2-2) mmol/L ABG Methemoglobin 0.5 (0-2) % Vick Test Present Hemoglobin 9.5 L (12.0-16.0) G/DL Carboxyhemoglobin 1.0 (0-4) % Inspired O2 21 % Critical Value No Sodium (136-145) meq/L Potassium (3.5-5.1) meq/L Chloride (98-107) meq/L Carbon Dioxide (21.0-32.0) meq/L Anion Gap (5-15) meq/L BUN (7-18) mg/dL Creatinine (0.50-1.00) mg/dL Estimated GFR (>89) mL/min Random Glucose (74-106) mg/dL Lactic Acid 1.8 (0.4-2.0) mmol/L Calcium (8.5-10.1) mg/dL Magnesium (1.5-2.5) mg/dL Total Bilirubin (0.2-1.0) mg/dL AST (15-37) U/L ALT (10-53) U/L Alkaline Phosphatase (45-117) U/L Total Creatine Kinase (26-192) U/L CK-MB (CK-2) (0.5-3.6) ng/mL Troponin I (0.02-0.05) ng/mL B-Natriuretic Peptide 20 (0-100) pg/mL Total Protein (6.4-8.2) g/dL Albumin (3.4-5.0) g/dL Imaging Data Radiologist's impression: Chest X-Ray 07/11/18 19:20 CONCLUSION: 1. No acute cardiopulmonary disease. Chest CTA 07/12/18 00:22 CONCLUSION: 1. Negative for pulmonary embolic disease. No lung consolidation or effusion. ECG Data Attestation: I personally reviewed and interpreted this ECG as follows: (Sinus tachycardia, rate 109, normal axis, normal intervals, nonspecific T wave abnormality) Discharge Plan Discharge Disposition Patient Disposition: 30 Still Patient Discharge Condition Condition: Stable Discharge Details Diagnosis: Asthma exacerbation, Upper respiratory infection, Exacerbation of systemic lupus Physicians Team ED Provider: Felice Cruz Primary Care Provider: Erika Mead Rxs /Orders / Referrals /Forms Prescriptions: No Action cyclobenzaprine 10 mg Tablet 10 mg PO TID PRN (Reason: Pain) RF: 0 hydrocodone-acetaminophen 10-325 mg Tablet 1 tab PO Q4-6H PRN (Reason: Pain) RF: 0 Status ED Status: With Doctor
--- NOTE | 2018-07-11 20:05 | XR ---
EXAM DATE: 07/11/2018 8:03 PM EST AGE/SEX: 53 years / Female INDICATIONS: Short of breath and difficulty breathing. CLINICAL DATA: This is the patient's initial encounter. Patient reports that signs and symptoms have been present for 3 days and indicates a pain score of 2/10. MEDICAL/SURGICAL HISTORY: . Hypercholesterolemia. Hypertension. Migraine. Fibromyalgia. Arthrit is. Anemia. Cholecystectomy . COMPARISON: No prior exams available for comparison. FINDINGS: A single AP view of the chest demonstrates the lungs to be symmetrically aerated without evidence of mass, infiltrate or effusion. The cardiomediastinal contours are unremarkable. Osseous structures a re intact. CONCLUSION: 1. No acute cardiopulmonary disease. Electronically signed by: Delbert Anglin MD 07/11/2018 8:03 PM EST
[2018-07-11 22:36] LABS: Baso % (Auto) 0.5 % (0.0-2.0); Eos # (Auto) 0.1 th/mm3 (0.0-0.4); Eos % (Auto) 1.3 % (0.0-4.0); Hematocrit 33.4 % (35.0-46.0); Hemoglobin 11.2 gm/dL (11.6-15.3); Lymph # (Auto) 2.7 th/mm3 (1.0-4.8); Mean Corpuscular HGB Conc 33.5 % (32.0-36.0); Mean Corpuscular Hemoglobin 29.2 pg (27.0-34.0); Mean Platelet Volume 8.4 fL (7.0-11.0); Mono # (Auto) 0.8 th/mm3 (0.0-0.9); Mono % (Auto) 9.6 % (0.0-8.0); Neut # (Auto) 4.4 th/mm3 (1.8-7.7); Neut % (Auto) 54.6 % (16.0-70.0); Platelet Count 268 th/mm3 (150-450); Red Blood Count 3.84 mil/mm3 (4.00-5.30); Red Cell Distribution Width 13.2 % (11.6-17.2); White Blood Count 8.1 th/mm3 (4.0-11.0)
[2018-07-11 22:41] LABS: ABG PCO2 37 mmHg (38-42); ABG PO2 89 mmHg (61-120)
[2018-07-11 23:02] LABS: Activated Partial Thrombo Time 26.6 sec (23.4-31.7); Prothrombin Time 10.1 sec (9.8-11.6)
[2018-07-11 23:03] LABS: D-Dimer 0.23 mg/L FEU (0.00-0.50)
[2018-07-11 23:21] LABS: Alanine Aminotransferase 35 U/L (10-53); Albumin 3.9 g/dL (3.4-5.0); Alkaline Phosphatase 80 U/L (45-117); Anion Gap 10 meq/L (5-15); Aspartate Aminotransferase 21 U/L (15-37); Blood Urea Nitrogen 14 mg/dL (7-18); Calcium 8.8 mg/dL (8.5-10.1); Carbon Dioxide 27.3 meq/L (21.0-32.0); Chloride 106 meq/L (98-107); Creatine Kinase 109 U/L (26-192); Glomerular Filtration Rate 59 mL/min (>89); Glucose,Random 119 mg/dL (74-106); Magnesium 1.9 mg/dL (1.5-2.5); Sodium 143 meq/L (136-145); Total Protein 7.6 g/dL (6.4-8.2)
[2018-07-11 23:26] LABS: Potassium 2.9 meq/L (3.5-5.1)
[2018-07-11] MEDS ORDERED: Morphine Inj 4 MG/ML Vial IV.PUSH ONE (23:36)
[2018-07-11] MEDS ORDERED: Azithromycin 250 MG Tablet PO ONE (23:36)
[2018-07-12] MEDS ORDERED: guaiFENesin/Codeine Syrup 200 MG/20 MG 10 ML UDC PO ONE (00:23)
--- NOTE | 2018-07-12 01:29 | CT ---
EXAM DATE: 07/12/2018 12:58 AM EST AGE/SEX: 53 years / Female INDICATIONS: Wheezing and shortness of breath X 3 days. CLINICAL DATA: This is the patient's initial encounter. Patient reports that signs and symptoms have been present for 3 days and indicates a pain score of 0/10. MEDICAL/SURGICAL HISTORY: Asthma. None. RADIATION DOSE: 10.60 CTDI (mGy) COMPARISON: No prior exams available for comparison. TECHNIQUE: Volumetric scanning was performed using a multi-row detector CT scanner during bolus infu christine of 74 ml Omnipaque 350 (iohexol) nonionic water-soluble contrast as a single exam dose. The claribel a was post processed with a variety of visualization algorithms including full volume maximum intensi ty projection and sliding thin slab reformation. Using automated exposure control and adjustment of the mA and/or kV according to patient size, radiation dose was kept as low as reasonably achievable t o obtain optimal diagnostic quality images. DICOM format image data is available electronically for review and comparison. FINDINGS: No filling defects are seen to suggest pulmonary embolic disease. No pleural or pericardial effusion. There is no hilar, mediastinal or axillary adenopathy. No focal lung consolidation. No acute findings in the upper abdomen. Previous cholecystectomy. CONCLUSION: 1. Negative for pulmonary embolic disease. No lung consolidation or effusion. Electronically signed by: Hebert Peterson MD 07/12/2018 1:28 AM EST
[2018-07-12] MEDS ORDERED: Sod Chloride 0.9% Inj 1,000 ML IV.SIG SCH (01:30)
[2018-07-12] MEDS ORDERED: Acetaminophen 325 MG Tablet PO PRN (05:20)
[2018-07-12] MEDS ORDERED: Bisacodyl 10 MG Supp RECTAL PRN (05:20)
[2018-07-12 07:35] LABS: Bacteria,Urine Many /hpf; Bilirubin,Urine Negative (Negative); Clarity,Urine Cloudy (Clear); Color,Urine Yellow (Yellw/Straw); Glucose,Urine (UA) Negative (Negative); Leukocyte Esterase,Urine Large (Negative); Mucus,Urine Few /lpf (Occasional); Nitrite,Urine Positive (Negative); Squamous Epithelial Cell,Urine 25 /hpf (0-5)
[2018-07-12] MEDS: Senna/Docusate Sodium 8.6/50 MG Tablet PO SCH ×2 (10:17→20:21)
[2018-07-12 11:35] LABS: Baso % (Auto) 0.3 % (0.0-2.0); Hematocrit 33.5 % (35.0-46.0); Hemoglobin 11.7 gm/dL (11.6-15.3); Lymph # (Auto) 0.8 th/mm3 (1.0-4.8); Lymph % (Auto) 10.4 % (9.0-44.0); Mean Corpuscular Hemoglobin 30.8 pg (27.0-34.0); Mean Platelet Volume 8.3 fL (7.0-11.0); Mono # (Auto) 0.2 th/mm3 (0.0-0.9); Mono % (Auto) 2.7 % (0.0-8.0); Neut # (Auto) 6.4 th/mm3 (1.8-7.7); Neut % (Auto) 86.6 % (16.0-70.0); Platelet Count 261 th/mm3 (150-450); Red Blood Count 3.81 mil/mm3 (4.00-5.30); Red Cell Distribution Width 13.4 % (11.6-17.2); White Blood Count 7.4 th/mm3 (4.0-11.0)
[2018-07-12 11:52] LABS: Calcium 9.2 mg/dL (8.5-10.1); Carbon Dioxide 21.5 meq/L (21.0-32.0); Potassium 3.8 meq/L (3.5-5.1)
--- NOTE | 2018-07-12 13:46 | ECG ---
Date Performed: 07/11/2018 Time Performed: 20:18:08 PTAGE: 53 years EKG: SINUS TACHYCARDIA NONSPECIFIC T-WAVE ABNORMALITY ABNORMAL RHYTHM ECG Since PREVIOUS TRACING , no significant change noted PREVIOUS TRACIN06/29/2015 18.35 DOCTOR: Eugene Roa Interpretating Date/Time 07/12/2018 13:44:25
[2018-07-12] MEDS: MethylPREDNISolone Sod Succinate Inj 40 MG/ML Vial IV.PUSH SCH ×2 (16:43→22:18)
--- NOTE | 2018-07-12 16:52 | P.HP ---
History of Present Illness Service: Hospitalist Primary Care Physician: Erika Mead DO Chief Complaint: Shortness of breath History of Present Illness: Patient is a 53-year-old -[place] female with a past medical history of asthma, lupus and RA who presents to the emergency room with a complaint of one- week shortness of breath, cough, fevers and general malaise. She has had yellow sputum. Also reports right-sided chest pain that is intermittent over the past month. Chest pain is not worse with exertion. Not currently hurting. She tells me she is very short of breath this morning and has been coughing almost nonstop. Significant general body aches-these are chronic due to her RA and lupus however they seem to be worse right now. Intermittent nausea but no vomiting. Denies recent diarrhea. She has had no sick contacts or recent travel. She does not take inhalers for her chronic asthma as she cannot afford them. - Diagnosis (1) Asthma exacerbation (2) Upper respiratory infection (3) Chest pain (4) Chronic pain Review of Systems All other systems reviewed negative except as stated in HPI PMFSH - History History Provided By: Patient, Medical Record - Medical History Medical History: Medical History (Last Reviewed 07/12/18 @ 16:38 by NEGRITA Mcmanus) Arthritis, rheumatoid Asthma Lupus Chronic neck and back pain Migraine - Surgical History Surgical History: Surgical History (Last Reviewed 07/12/18 @ 16:38 by NEGRITA Mcmanus) Hx of cholecystectomy - Family History Family History: Family History (Last Reviewed 07/12/18 @ 16:38 by NEGRITA Mcmanus) Other Unknown family medical history - Tobacco History Second Hand Smoke Exposure: No Tobacco Use In Past 30 Days: No Smoking Status: Never smoker - Alcohol History How Often Do You Have a Drink Containing Alcohol: Never - Substance Use History Substance History: No History of Abuse - Travel History Recent Travel in the [place] Within the Last 8 Weeks: No Recent Travel Out of the Country Within the Last 8 Weeks: No - Immunization History Tetanus Immunization: <5 Years Medications and Allergies Active Medications: Active Medications Acetaminophen (Tylenol) 650 mg PO Q4H PRN PRN Reason: Temp > 100.4 Hydrocodone Bitart/Acetaminophen (Foster 10/325) 1 tab PO Q4H PRN PRN Reason: PAIN SCALE 1-10 Last Admin: 07/12/18 15:50 Dose: 1 tab Al Hydroxide/Mg Hydroxide (Milk Of Magnesia Liq) 30 ml PO Q12H PRN PRN Reason: Mild Constipation Albuterol (Duoneb Neb (Aracely)) 1 ampul NEB Q4HR NEB ARACELY Last Admin: 07/12/18 12:38 Dose: 1 ampul Albuterol (Duoneb Neb (Prn)) 1 ampul NEB Q4HR NEB PRN PRN Reason: SOB/Wheezing Bisacodyl (Dulcolax Supp) 10 mg RECTAL DAILY PRN PRN Reason: SEVERE CONSITIPATION Cyclobenzaprine HCl (Flexeril) 10 mg PO TID PRN PRN Reason: MUSCLE SPASM-PAIN Azithromycin 500 mg/ Sodium (Chloride) 250 mls @ 250 mls/hr IV.SIG Q24H ARACELY Lactulose (Lactulose Liq) 30 ml PO DAILY PRN PRN Reason: SEVERE CONSITIPATION Methylprednisolone Sodium Succinate (Solumedrol Inj) 40 mg IV.PUSH Q8HR ARACELY Ondansetron HCl (Zofran Inj) 4 mg IV.PUSH Q6H PRN PRN Reason: NAUSEA OR VOMITING Senna/Docusate Sodium (Sandy-Colace) 1 tab PO BID ARACELY Last Admin: 07/12/18 10:17 Dose: 1 tab Sennosides (Senokot) 17.2 mg PO Q12H PRN PRN Reason: Moderate Constipation Allergies Allergy/AdvReac Type Severity Reaction Status Date / Time ketorolac Allergy Severe RASH, HIVES Verified 07/11/18 19:04 Home Medications Medication Instructions Recorded Confirmed Type cyclobenzaprine 10 mg PO TID PRN 02/16/18 07/12/18 History hydrocodone-acetaminophen 1 tab PO Q4-6H PRN 02/16/18 07/12/18 History Exam Vital signs: Vital Signs 07/11/18 19:01 07/11/18 19:20 07/11/18 19:33 Temperature 99.1 F Pulse Rate 112 H 105 H Respiratory Rate 24 20 Blood Pressure 138/64 Pulse Oximetry 100 100 07/11/18 22:30 07/11/18 23:04 07/12/18 01:36 Temperature Pulse Rate 104 H 94 H 101 H Respiratory Rate 16 18 18 Blood Pressure 140/72 Pulse Oximetry 96 07/12/18 03:50 07/12/18 05:15 07/12/18 06:46 Temperature 98.5 F Pulse Rate 91 H 107 H 110 H Respiratory Rate 18 18 20 Blood Pressure 135/69 115/78 Pulse Oximetry 99 99 07/12/18 07:10 07/12/18 07:18 07/12/18 11:14 Temperature 97.8 F 97.8 F Pulse Rate 110 H 116 H 118 H Respiratory Rate 20 16 20 Blood Pressure 115/64 131/70 Pulse Oximetry 100 100 07/12/18 12:40 07/12/18 15:38 Temperature 98.0 F Pulse Rate 105 H 118 H Respiratory Rate 15 16 Blood Pressure 143/68 H Pulse Oximetry 100 Intake & Output 07/11/18 07/12/18 07/12/18 18:59 06:59 18:59 Intake Total 1050 / 1050 Balance 1050 / 1050 Weight 99.79 kg Intake: IV 1050 / 1050 NS Inj 1,000 ML @ 1000 mls/hr 1050 / 1050 IV.SIG BOLUS ARACELY Rx#:[id number] Other: # Voids 1 Narrative: GENERAL: Well-nourished, well-developed adult female in no obvious distress. SKIN: Warm and dry. HEAD: Atraumatic. Normocephalic. CARDIOVASCULAR: Regular rate and rhythm. RESPIRATORY: No accessory muscle use. Wheezes. Breath sounds equal bilaterally. GASTROINTESTINAL: Abdomen soft, non-tender, non-distended. Positive bowel sounds. MUSCULOSKELETAL: Extremities without clubbing, cyanosis, or edema. No obvious deformities. NEUROLOGICAL: Awake and alert. No obvious cranial nerve deficits. Trigger point tenderness. motor grossly within normal limits. Normal speech. Results - Labs CBC & Chem 7: 07/12/18 11:22 07/12/18 11:22 Labs: Laboratory Results - last 24 hr 07/11/18 07/11/18 07/11/18 22:10 22:10 22:10 WBC 8.1 RBC 3.84 L Hgb 11.2 L Hct 33.4 L MCV 87.0 MCH 29.2 MCHC 33.5 RDW 13.2 Plt Count 268 MPV 8.4 Neut % (Auto) 54.6 Lymph % (Auto) 34.0 [place] % (Auto) 9.6 H Eos % (Auto) 1.3 Baso % (Auto) 0.5 Neut # (Auto) 4.4 Lymph # (Auto) 2.7 [place] # (Auto) 0.8 Eos # (Auto) 0.1 Baso # (Auto) 0.0 WBC Differential . Differential Comment Auto diff final PT 10.1 INR 1.0 APTT 26.6 D-Dimer Quant (PE/DVT) 0.23 Puncture Site Patient Temperature O2 Saturation ABG pH ABG pCO2 ABG pO2 ABG HCO3 ABG O2 Content ABG Base Excess ABG Methemoglobin Vick Test Hemoglobin Carboxyhemoglobin Inspired O2 Critical Value Sodium 143 Potassium 2.9 L* Chloride 106 Carbon Dioxide 27.3 Anion Gap 10 BUN 14 Creatinine 1.16 H Estimated GFR 59 L Random Glucose 119 H Lactic Acid Calcium 8.8 Magnesium 1.9 Total Bilirubin 0.2 AST 21 ALT 35 Alkaline Phosphatase 80 Total Creatine Kinase 109 CK-MB (CK-2) Less than 1.0 Troponin I Less than 0.02 L B-Natriuretic Peptide Total Protein 7.6 Albumin 3.9 Urine Color Urine Clarity Urine pH Ur Specific [place] Urine Protein Urine Glucose (UA) Urine Ketones Urine Occult Blood Urine Nitrate Urine Bilirubin Urine Urobilinogen Ur Leukocyte Esterase Urine RBC Urine WBC Ur Squamous Epith Cells Urine Bacteria Urine Mucus Micro UA Comment Ur Microscopic Review Urine Culture Comments 07/11/18 07/11/18 07/11/18 22:10 22:10 22:30 WBC RBC Hgb Hct MCV MCH MCHC RDW Plt Count MPV Neut % (Auto) Lymph % (Auto) [place] % (Auto) Eos % (Auto) Baso % (Auto) Neut # (Auto) Lymph # (Auto) [place] # (Auto) Eos # (Auto) Baso # (Auto) WBC Differential Differential Comment PT INR APTT D-Dimer Quant (PE/DVT) Puncture Site Right radial Patient Temperature 98.6 O2 Saturation 95 ABG pH 7.41 ABG pCO2 37 L ABG pO2 89 ABG HCO3 23 ABG O2 Content 12.8 ABG Base Excess -1.0 ABG Methemoglobin 0.5 Vick Test Present Hemoglobin 9.5 L Carboxyhemoglobin 1.0 Inspired O2 21 Critical Value No Sodium Potassium Chloride Carbon Dioxide Anion Gap BUN Creatinine Estimated GFR Random Glucose Lactic Acid 1.8 Calcium Magnesium Total Bilirubin AST ALT Alkaline Phosphatase Total Creatine Kinase CK-MB (CK-2) Troponin I B-Natriuretic Peptide 20 Total Protein Albumin Urine Color Urine Clarity Urine pH Ur Specific [place] Urine Protein Urine Glucose (UA) Urine Ketones Urine Occult Blood Urine Nitrate Urine Bilirubin Urine Urobilinogen Ur Leukocyte Esterase Urine RBC Urine WBC Ur Squamous Epith Cells Urine Bacteria Urine Mucus Micro UA Comment Ur Microscopic Review Urine Culture Comments 07/12/18 07/12/18 07/12/18 06:15 11:22 11:22 WBC 7.4 RBC 3.81 L Hgb 11.7 Hct 33.5 L MCV 88.0 MCH 30.8 MCHC 35.0 RDW 13.4 Plt Count 261 MPV 8.3 Neut % (Auto) 86.6 H Lymph % (Auto) 10.4 [place] % (Auto) 2.7 Eos % (Auto) 0.0 Baso % (Auto) 0.3 Neut # (Auto) 6.4 Lymph # (Auto) 0.8 L [place] # (Auto) 0.2 Eos # (Auto) 0.0 Baso # (Auto) 0.0 WBC Differential . Differential Comment Auto diff final PT INR APTT D-Dimer Quant (PE/DVT) Puncture Site Patient Temperature O2 Saturation ABG pH ABG pCO2 ABG pO2 ABG HCO3 ABG O2 Content ABG Base Excess ABG Methemoglobin Vick Test Hemoglobin Carboxyhemoglobin Inspired O2 Critical Value Sodium 140 Potassium 3.8 D Chloride 107 Carbon Dioxide 21.5 Anion Gap 12 BUN 9 Creatinine 1.12 H Estimated GFR 61 L Random Glucose 197 H Lactic Acid Calcium 9.2 Magnesium Total Bilirubin AST ALT Alkaline Phosphatase Total Creatine Kinase CK-MB (CK-2) Troponin I B-Natriuretic Peptide Total Protein Albumin Urine Color Yellow Urine Clarity Cloudy H Urine pH 5.0 Ur Specific [place] Greater than 1.060 H Urine Protein 30 H Urine Glucose (UA) Negative Urine Ketones Negative Urine Occult Blood Small H Urine Nitrate Positive H Urine Bilirubin Negative Urine Urobilinogen 2.0 H Ur Leukocyte Esterase Large H Urine RBC 4 H Urine WBC 3 Ur Squamous Epith Cells 25 Urine Bacteria Many H Urine Mucus Few H Micro UA Comment Culture indicated Ur Microscopic Review Not Reportable Urine Culture Comments Culture indicated - Imaging Impressions Chest X-Ray 07/11/18 19:20 CONCLUSION: 1. No acute cardiopulmonary disease. Chest CTA 07/12/18 00:22 CONCLUSION: 1. Negative for pulmonary embolic disease. No lung consolidation or effusion. Caprini VTE Risk Assessment Caprini VTE Risk Assessment: No/Low Risk (score <= 1) Caprini Risk Assessment Model: Point Value = 1 Point Value = 2 Point Value = 3 Point Value = 5 Age 41-60 Minor surgery BMI > 25 kg/m2 Swollen legs Varicose veins or History of unexplained or recurrent spontaneous Oral contraceptives or hormone replacement Sepsis (< 1 month) Serious lung disease, including pneumonia (< 1 month) Abnormal pulmonary function Acute myocardial infarction Congestive heart failure (< 1 month) History of inflammatory bowel disease Medical patient at bed rest Age 61-74 Arthroscopic surgery Major open surgery (> 45 min) Laparoscopic surgery (> 45 min) Malignancy Confined to bed (> 72 hours) Immobilizing plaster cast Central venous access Age >= 75 History of VTE Family history of VTE Factor V Leiden Prothrombin [id number] Lupus anticoagulant Anticardiolipin antibodies Elevated serum homocysteine Heparin-induced thrombocytopenia Other congenital or acquired thrombophilia Stroke (< 1 month) Elective arthroplasty Hip, pelvis, or leg fracture Acute spinal cord injury (< 1 month) Prophylaxis Regimen: Total Risk Factor Score Risk Level Prophylaxis Regimen 0-1 Low Early ambulation 2 Moderate Order ONE of the following: *Sequential Compression Device (SCD) *Heparin 5000 units SQ BID 3-4 Higher Order ONE of the following medications: *Heparin 5000 units SQ TID *Enoxaparin/Lovenox 40 mg SQ daily (WT < 150 kg, CrCl > 30 mL/min) *Enoxaparin/Lovenox 30 mg SQ daily (WT < 150 kg, CrCl > 10-29 mL/min) *Enoxaparin/Lovenox 30 mg SQ BID (WT < 150 kg, CrCl > 30 mL/min) AND/OR *Sequential Compression Device (SCD) 5 or more Highest Order ONE of the following medications: *Heparin 5000 units SQ TID (Preferred with Epidurals) *Enoxaparin/Lovenox 40 mg SQ daily (WT < 150 kg, CrCl > 30 mL/min) *Enoxaparin/Lovenox 30 mg SQ daily (WT < 150 kg, CrCl > 10-29 mL/min) *Enoxaparin/Lovenox 30 mg SQ BID (WT < 150 kg, CrCl > 30 mL/min) AND *Sequential Compression Device (SCD) Assessment and Plan - Assessment (1) Asthma exacerbation Code(s): J45.901 - Unspecified asthma with (acute) exacerbation Status: Acute (2) Upper respiratory infection Code(s): J06.9 - Acute upper respiratory infection, unspecified Status: Acute (3) Chest pain Code(s): R07.9 - Chest pain, unspecified Status: Acute (4) Chronic pain Code(s): G89.29 - Other chronic pain Status: Acute - Plan Patient is a 53-year-old -[place] female with a past medical history of asthma, lupus and RA who presents to the emergency room with a complaint of one- week shortness of breath, cough, fevers and general malaise. Asthma exacerbation -Duo nebs -IV steroids Lower respiratory infection -Flu negative -Azithromycin started in ED -Follow-up cultures-no growth in 1 day Chest pain -Cardiac enzymes negative -Negative for PE; chest x-ray negative -Possibly from coughing; will add Tessaldelfin Perles Lupus/RA/chronic pain -Restart home hydrocodone. -[facility] Prescription Drug Monitoring Database has been queried and verified prior to prescribing the controlled substance. Hypokalemia -Possibly from duo nebs -Replacement ordered; monitor Questionable UTI -Pending cultures -Dehydrated; bolused in ED DVT prophylaxis: SCDs and early ambulation Discharge planning: Likely home (1) Asthma exacerbation Qualifiers: Asthma severity: unspecified severity Asthma persistence: unspecified Qualified Code(s): J45.901 - Unspecified asthma with (acute) exacerbation (2) Upper respiratory infection Qualifiers: URI type: unspecified URI Qualified Code(s): J06.9 - Acute upper respiratory infection, unspecified
[2018-07-12] MEDS: Benzonatate 100 MG Capsule PO PRN (17:48)
[2018-07-12] MEDS: Azithromycin Inj 500 MG in Sodium Chlor 0.9% Inj 250 ML IV.SIG SCH (22:18)
[2018-07-13 04:15] LABS: ABG PCO2 38 mmHg (38-42); ABG PO2 86 mmHg (61-120)
[2018-07-13] MEDS: MethylPREDNISolone Sod Succinate Inj 40 MG/ML Vial IV.PUSH SCH ×3 (06:40→21:08)
[2018-07-13 07:45] LABS: Calcium 9.1 mg/dL (8.5-10.1); Carbon Dioxide 21.9 meq/L (21.0-32.0); Magnesium 1.8 mg/dL (1.5-2.5); Potassium 3.8 meq/L (3.5-5.1)
[2018-07-13] MEDS: Senna/Docusate Sodium 8.6/50 MG Tablet PO SCH ×2 (08:45→20:22)
[2018-07-13] MEDS ORDERED: Naloxone Inj 0.4 MG/ML Vial IV.PUSH PRN (10:00)
[2018-07-13] MEDS: Morphine Inj 4 MG/ML Vial IV.PUSH PRN ×3 (10:20→22:14)
[2018-07-13] MEDS: guaiFENesin 600 MG ER Tablet PO SCH ×2 (10:54→20:22)
--- NOTE | 2018-07-13 17:19 | CT ---
EXAM DATE: 07/13/2018 5:07 PM EST AGE/SEX: 53 years / Female INDICATIONS: Throat pain for three days. CLINICAL DATA: This is the patient's initial encounter. Patient reports that signs and symptoms have been present for 3 days and indicates a pain score of 7/10. MEDICAL/SURGICAL HISTORY: Lupus. Cholecystectomy. RADIATION DOSE: 14.94 CTDI (mGy) COMPARISON: No prior exams available for comparison. TECHNIQUE: Helical acquisition was performed using a multirow detector CT scanner during the adminis tration of 65 ml Omnipaque 350 (iohexol) nonionic water-soluble contrast as a single exam dose. Usi ng automated exposure control and adjustment of the mA and/or kV according to patient size, radiation dose was kept as low as reasonably achievable to obtain optimal diagnostic quality images. DICOM fo rmat image data is available electronically for review and comparison. FINDINGS: Patient has extensive dental work and with associated metallic streak artifact. There is circumferent ial soft tissue swelling of the posterior oropharynx at the level of the tongue base. There is associ ated mild narrowing of the upper airway. Posterior nasopharynx appears normal. Hypopharynx and epiglo ttis within normal limits. No discrete rim-enhancing fluid collection demonstrated. No lymphadenopath y. No acute bony abnormality demonstrated. Visualized lung apices are clear. CONCLUSION: Posterior oropharyngeal soft tissue swelling at the level of the tongue base, nonspecific but appears fairly circumferential and most likely on the basis of tonsillitis/pharyngitis. Study is limited by metallic streak artifact. No gross evidence of discrete mass or abscess demonstrated. Electronically signed by: Nilo Ortega MD 07/13/2018 5:17 PM EST
--- NOTE | 2018-07-13 17:37 | P.PN ---
Subjective Interval history: Patient is seen sitting up in bed. She continues to complain of throat pain. Cough is slightly better. Feels like she has chest congestion but has not produced any sputum. No fevers or chills. No nausea vomiting Physical Exam Vital signs: Vital Signs 07/12/18 17:59 07/12/18 19:45 07/12/18 20:31 Temperature 98.0 F Pulse Rate 101 H 97 H 103 H Respiratory Rate 18 17 16 Blood Pressure 110/67 Pulse Oximetry 98 100 07/12/18 23:31 07/13/18 03:18 07/13/18 03:57 Temperature 97.8 F 98.4 F Pulse Rate 109 H 92 H 101 H Respiratory Rate 16 16 16 Blood Pressure 112/59 L 119/70 Pulse Oximetry 99 100 07/13/18 07:29 07/13/18 08:00 07/13/18 10:58 Temperature 98 F 98.7 F Pulse Rate 68 96 H 108 H Respiratory Rate 22 18 18 Blood Pressure 133/64 112/64 Pulse Oximetry 100 100 07/13/18 12:29 07/13/18 16:57 Temperature 98.4 F Pulse Rate 117 H Respiratory Rate 20 19 Blood Pressure 122/64 Pulse Oximetry 98 Intake & Output 07/12/18 07/13/18 07/13/18 18:59 06:59 18:59 Intake Total 250 / 250 100 / 100 Balance 250 / 250 100 / 100 Intake: IV 250 / 250 100 / 100 Azithromycin Inj 500 MG In NS 250 / 250 Inj 250 ML @ 250 mls/hr IV.SIG Q24H DARLINE Rx#:[id number] Rocephin Inj 1,000 MG In NS Inj 100 / 100 100 ML @ 200 mls/hr IV.SIG Q24H DARLINE Rx#:[id number] Other: # Voids 1 Date of Last Bowel Movement 07/11/18 Narrative: GENERAL: Well-nourished, well-developed adult female in no obvious distress. SKIN: Warm and dry. HEAD: Atraumatic. Normocephalic. CARDIOVASCULAR: Regular rate and rhythm. RESPIRATORY: No accessory muscle use. Wheezes. Breath sounds equal bilaterally. GASTROINTESTINAL: Abdomen soft, non-tender, non-distended. Positive bowel sounds. MUSCULOSKELETAL: Extremities without clubbing, cyanosis, or edema. No obvious deformities. NEUROLOGICAL: Awake and alert. No obvious cranial nerve deficits. Trigger point tenderness. motor grossly within normal limits. Normal speech. Results - Labs CBC & Chem 7: 07/12/18 11:22 07/13/18 06:30 Laboratory Results - last 24 hr 07/12/18 07/13/18 07/13/18 06:15 04:04 06:30 Puncture Site Right radial Patient Temperature 98.6 O2 Saturation 96 ABG pH 7.40 ABG pCO2 38 ABG pO2 86 ABG HCO3 23 ABG O2 Content 13.5 ABG Base Excess -1.0 ABG Methemoglobin 0.4 Vick Test Present Hemoglobin 10.0 L Carboxyhemoglobin 1.0 O2 Delivery Device Room air Inspired O2 21 Critical Value No Sodium 137 Potassium 3.8 Chloride 104 Carbon Dioxide 21.9 Anion Gap 11 BUN 12 Creatinine 1.24 H Estimated GFR 55 L Random Glucose 226 H Calcium 9.1 Magnesium 1.8 Urine Color Yellow Urine Clarity Cloudy H Urine pH 5.0 Ur Specific [place] Greater than 1.060 H Urine Protein 30 H Urine Glucose (UA) Negative Urine Ketones Negative Urine Occult Blood Small H Urine Nitrate Positive H Urine Bilirubin Negative Urine Urobilinogen 2.0 H Ur Leukocyte Esterase Large H Urine RBC 4 H Urine WBC 3 Ur Squamous Epith Cells 25 Urine Bacteria Many H Urine Mucus Few H Micro UA Comment Culture indicated Urine Culture Comments Culture indicated Microbiology 07/12/18 06:15 Clean Catch Urine Urine Culture - Preliminary gram negative rods 07/11/18 22:05 Blood - Peripheral Aerobic Blood Culture - Preliminary No growth in 2 days 07/11/18 22:05 Blood - Peripheral Anaerobic Blood Culture - Preliminary No growth in 2 days 07/11/18 22:10 Blood - Peripheral Aerobic Blood Culture - Preliminary No growth in 2 days 07/11/18 22:10 Blood - Peripheral Anaerobic Blood Culture - Preliminary No growth in 2 days - Imaging Impressions Soft Tissue Neck CT 07/13/18 00:00 CONCLUSION: Posterior oropharyngeal soft tissue swelling at the level of the tongue base, nonspecific but appears fairly circumferential and most likely on the basis of tonsillitis/pharyngitis. Study is limited by metallic streak artifact. No gross evidence of discrete mass or abscess demonstrated. Assessment and Plan - Assessment (1) Asthma exacerbation Code(s): J45.901 - Unspecified asthma with (acute) exacerbation Status: Acute (2) Upper respiratory infection Code(s): J06.9 - Acute upper respiratory infection, unspecified Status: Acute (3) Chest pain Code(s): R07.9 - Chest pain, unspecified Status: Acute (4) Chronic pain Code(s): G89.29 - Other chronic pain Status: Acute - Plan Patient is a 53-year-old -[place] female with a past medical history of asthma, lupus and RA who presents to the emergency room with a complaint of one- week shortness of breath, cough, fevers and general malaise. Asthma exacerbation -Duo nebs -IV steroids Lower respiratory infection -Flu negative -Azithromycin started in ED -Follow-up cultures-no growth to date Pharyngitis -Exquisite tenderness when palpating neck -CT ordered to evaluate -Strep ordered Chest pain -Cardiac enzymes negative -Negative for PE; chest x-ray negative -Possibly from coughing; will add Abdias Luz Lupus/RA/chronic pain -Restart home hydrocodone. -[facility] Prescription Drug Monitoring Database has been queried and verified prior to prescribing the controlled substance. Hypokalemia -Possibly from duo nebs -Replacement ordered; monitor UTI -Cultures positive for gram-negative rods; add Rocephin; monitor for sensitivity -Dehydrated; bolused in ED DVT prophylaxis: SCDs and early ambulation Discharge planning: Likely home (1) Asthma exacerbation Qualifiers: Asthma severity: unspecified severity Asthma persistence: unspecified Qualified Code(s): J45.901 - Unspecified asthma with (acute) exacerbation (2) Upper respiratory infection Qualifiers: URI type: unspecified URI Qualified Code(s): J06.9 - Acute upper respiratory infection, unspecified
[2018-07-13] MEDS: Azithromycin Inj 500 MG in Sodium Chlor 0.9% Inj 250 ML IV.SIG SCH (23:10)
[2018-07-14] MEDS: Morphine Inj 4 MG/ML Vial IV.PUSH PRN ×6 (04:35→21:27)
[2018-07-14] MEDS: MethylPREDNISolone Sod Succinate Inj 40 MG/ML Vial IV.PUSH SCH ×4 (05:50→22:34)
[2018-07-14] MEDS: Benzonatate 100 MG Capsule PO PRN (07:39)
[2018-07-14] MEDS: guaiFENesin 600 MG ER Tablet PO SCH ×3 (07:39→21:27)
[2018-07-14] MEDS: Senna/Docusate Sodium 8.6/50 MG Tablet PO SCH ×3 (07:39→21:27)
--- NOTE | 2018-07-14 10:20 | P.PN ---
Subjective Interval history: Follow up for asthma, tonsillitis/pharyngitis, UTI. The patient reports continued intractable nonproductive hacking cough, sore throat, shortness of breath, and occasional wheezing. Denies fevers/chills but does report occasional sweats. Denies chest pain. She does not feel ready for discharge. Denies any other medical complaints at this time. Physical Exam Vital signs: Vital Signs 07/13/18 10:58 07/13/18 12:29 07/13/18 16:57 Temperature 98.7 F 98.4 F Pulse Rate 108 H 117 H Respiratory Rate 18 20 19 Blood Pressure 112/64 122/64 Pulse Oximetry 100 98 07/13/18 18:10 07/13/18 20:16 07/13/18 21:22 Temperature 98.9 F 98.4 F Pulse Rate 111 H 108 H 110 H Respiratory Rate 16 18 20 Blood Pressure 115/63 131/71 Pulse Oximetry 100 100 07/13/18 23:56 07/14/18 00:07 07/14/18 03:49 Temperature 98.4 F 98.3 F Pulse Rate 114 H 98 H 89 Respiratory Rate 20 17 20 Blood Pressure 122/76 118/75 Pulse Oximetry 99 99 07/14/18 04:26 07/14/18 07:52 07/14/18 07:53 Temperature Pulse Rate 85 95 H Respiratory Rate 16 16 Blood Pressure Pulse Oximetry 99 07/14/18 08:00 07/14/18 08:50 07/14/18 09:37 Temperature 97.6 F Pulse Rate 99 H Respiratory Rate 16 18 18 Blood Pressure 116/68 Pulse Oximetry 98 Intake & Output 07/13/18 07/14/18 07/14/18 18:59 06:59 18:59 Intake Total 100 / 100 610 / 610 Balance 100 / 100 610 / 610 Intake: IV 100 / 100 250 / 250 Azithromycin Inj 500 MG In NS 250 / 250 Inj 250 ML @ 250 mls/hr IV.SIG Q24H [facility] Rx#:[id number] Rocephin Inj 1,000 MG In NS Inj 100 / 100 100 ML @ 200 mls/hr IV.SIG Q24H [facility] Rx#:[id number] Oral 360 / 360 Other: # Voids 3 Date of Last Bowel Movement 07/11/18 07/11/18 Narrative: GENERAL: Well-nourished, well-developed pleasant female patient in NAD. Intractable cough throughout conversation. SKIN: Warm and dry. No rash. HEENT: Normocephalic. Atraumatic. Pupils equal and round. Mucous membranes pink and moist. NECK: Supple. Trachea midline. Anterior cervical and submandibular tender lymphadenopathy. CARDIOVASCULAR: Regular rate and rhythm. No murmur appreciated. RESPIRATORY: No accessory muscle use. Decreased breath sounds throughout with diminished inspiratory effort, occasional faint expiratory wheezing. Breath sounds equal bilaterally. GASTROINTESTINAL: Abdomen soft, non-tender, nondistended. Normoactive bowel sounds x4. MUSCULOSKELETAL: No obvious deformities. Extremities without clubbing, cyanosis , or edema. NEUROLOGICAL: Awake and alert. No obvious cranial nerve deficits. Motor grossly within normal limits. Moving all extremities spontaneously. Normal speech. PSYCHIATRIC: Appropriate mood and affect; insight and judgment normal. Results - Labs CBC & Chem 7: 07/12/18 11:22 07/13/18 06:30 Laboratory Results - last 24 hr 07/12/18 06:15 Urine Color Yellow Urine Clarity Cloudy H Urine pH 5.0 Ur Specific [place] Greater than 1.060 H Urine Protein 30 H Urine Glucose (UA) Negative Urine Ketones Negative Urine Occult Blood Small H Urine Nitrate Positive H Urine Bilirubin Negative Urine Urobilinogen 2.0 H Ur Leukocyte Esterase Large H Urine RBC 4 H Urine WBC 3 Ur Squamous Epith Cells 25 Urine Bacteria Many H Urine Mucus Few H Micro UA Comment Culture indicated Urine Culture Comments Culture indicated Microbiology 07/12/18 06:15 Clean Catch Urine Urine Culture - Final Escherichia coli 07/11/18 22:05 Blood - Peripheral Aerobic Blood Culture - Preliminary No growth in 2 days 07/11/18 22:05 Blood - Peripheral Anaerobic Blood Culture - Preliminary No growth in 2 days 07/11/18 22:10 Blood - Peripheral Aerobic Blood Culture - Preliminary No growth in 2 days 07/11/18 22:10 Blood - Peripheral Anaerobic Blood Culture - Preliminary No growth in 2 days - Imaging Impressions Soft Tissue Neck CT 07/13/18 00:00 CONCLUSION: Posterior oropharyngeal soft tissue swelling at the level of the tongue base, nonspecific but appears fairly circumferential and most likely on the basis of tonsillitis/pharyngitis. Study is limited by metallic streak artifact. No gross evidence of discrete mass or abscess demonstrated. Assessment and Plan - Assessment (1) Asthma exacerbation Code(s): J45.901 - Unspecified asthma with (acute) exacerbation Status: Acute (2) Upper respiratory infection Code(s): J06.9 - Acute upper respiratory infection, unspecified Status: Acute (3) Chest pain Code(s): R07.9 - Chest pain, unspecified Status: Acute (4) Chronic pain Code(s): G89.29 - Other chronic pain Status: Acute - Plan 53-year-old -[place] female with a past medical history of asthma, lupus and RA who presents to the emergency room with a complaint of one-week shortness of breath, cough, fevers and general malaise. Acute Asthma exacerbation -Continue duonebs q4h kole and prn -Continue steroids, increased IV Solumedrol to 40mg q6h -O2 as needed Upper respiratory infection -Flu negative -Given symptoms, treating empirically for pneumonia with IV Rocephin/Azithro -Follow-up cultures-no growth to date Acute Tonsillitis/Pharyngitis -Exquisite tenderness when palpating neck -CT soft tissue neck shows Posterior oropharyngeal soft tissue swelling at the level of the tongue base, nonspecific but appears fairly circumferential and most likely on the basis of tonsillitis/pharyngitis. No gross evidence of discrete mass or abscess demonstrated -Strep screen/culture pending -Continue on IV steroids as above, allergy to NSAIDs Chest pain -Cardiac enzymes negative -Negative for PE; chest x-ray negative -Suspect secondary to coughing -continue Tessalon Perles 100mg tid Lupus/RA/chronic pain -Restart home hydrocodone. -[facility] Prescription Drug Monitoring Database has been queried and verified prior to prescribing the controlled substance. Hypokalemia -Given KCl replacement -Repeat K 3.8, resolved UTI -Cultures positive for E. Coli -Continue IV Rocephin DVT prophylaxis: SCDs and early ambulation Discharge Planning: Discharge pending further clinical improvement. Possible discharge in next 1-2 days. (1) Asthma exacerbation Qualifiers: Asthma severity: unspecified severity Asthma persistence: unspecified Qualified Code(s): J45.901 - Unspecified asthma with (acute) exacerbation (2) Upper respiratory infection Qualifiers: URI type: unspecified URI Qualified Code(s): J06.9 - Acute upper respiratory infection, unspecified
[2018-07-14] MEDS: Benzonatate 100 MG Capsule PO SCH ×2 (11:40→17:37)
[2018-07-14] MEDS: Azithromycin Inj 500 MG in Sodium Chlor 0.9% Inj 250 ML IV.SIG SCH (22:34)
[2018-07-15] MEDS: Morphine Inj 4 MG/ML Vial IM PRN (01:45)
[2018-07-15] MEDS: Benzonatate 100 MG Capsule PO SCH ×3 (01:45→18:54)
[2018-07-15] MEDS: MethylPREDNISolone Sod Succinate Inj 40 MG/ML Vial IV.PUSH SCH ×4 (07:27→22:56)
[2018-07-15] MEDS: guaiFENesin 600 MG ER Tablet PO SCH ×2 (09:56→21:04)
[2018-07-15] MEDS: Senna/Docusate Sodium 8.6/50 MG Tablet PO SCH ×2 (09:57→21:04)
[2018-07-15 10:42] LABS: Hematocrit 32.6 % (35.0-46.0); Hemoglobin 10.6 gm/dL (11.6-15.3); Mean Corpuscular HGB Conc 32.5 % (32.0-36.0); Mean Corpuscular Hemoglobin 29.4 pg (27.0-34.0); Mean Corpuscular Volume 90.4 fL (80.0-100.0); Mean Platelet Volume 8.3 fL (7.0-11.0); Platelet Count 308 th/mm3 (150-450); Red Cell Distribution Width 13.4 % (11.6-17.2); White Blood Count 15.7 th/mm3 (4.0-11.0)
[2018-07-15 11:10] LABS: Calcium 8.9 mg/dL (8.5-10.1); Carbon Dioxide 28.3 meq/L (21.0-32.0); Potassium 3.9 meq/L (3.5-5.1)
--- NOTE | 2018-07-15 11:12 | P.PN ---
Subjective Interval history: Follow up for asthma, tonsillitis/pharyngitis, UTI. The patient reports not much improvement compared to yesterday. She reports continued sore throat and odynophagia. She reports minimal oral intake. She reports continued intractable dry hacking cough, shortness of breath, and occasional wheezing. Denies fevers/ chills or chest pain. She is requesting her megace be restarted. She denies any other medical complaints at this time. She does not feel ready for discharge. Physical Exam Vital signs: Vital Signs 07/14/18 12:18 07/14/18 13:05 07/14/18 13:12 Temperature 97.9 F 97.8 F Pulse Rate 93 H 92 H 75 Respiratory Rate 16 20 18 Blood Pressure 118/59 L 136/63 Pulse Oximetry 97 93 L 07/14/18 15:58 07/14/18 16:54 07/14/18 19:52 Temperature 97.8 F Pulse Rate 75 91 H 91 H Respiratory Rate 18 18 18 Blood Pressure 118/58 L Pulse Oximetry 97 07/14/18 20:00 07/14/18 20:30 07/14/18 21:30 Temperature 98.5 F Pulse Rate 90 Respiratory Rate 18 16 16 Blood Pressure 113/57 L Pulse Oximetry 98 07/14/18 22:38 07/14/18 23:56 07/15/18 00:00 Temperature 97.9 F Pulse Rate 90 Respiratory Rate 16 16 Blood Pressure 134/74 Pulse Oximetry 95 97 07/15/18 00:30 07/15/18 00:57 07/15/18 03:38 Temperature Pulse Rate 89 86 Respiratory Rate 16 16 18 Blood Pressure Pulse Oximetry 07/15/18 03:56 07/15/18 05:15 07/15/18 08:00 Temperature 98.8 F Pulse Rate 92 H 91 H Respiratory Rate 20 16 18 Blood Pressure 109/61 129/69 Pulse Oximetry 100 100 07/15/18 08:03 Temperature Pulse Rate 96 H Respiratory Rate 19 Blood Pressure Pulse Oximetry Intake & Output 07/14/18 07/15/18 07/15/18 18:59 06:59 18:59 Intake Total 600 / 600 720 / 720 Balance 600 / 600 720 / 720 Intake: IV 100 / 100 Rocephin Inj 1,000 MG In NS Inj 100 / 100 100 ML @ 200 mls/hr IV.SIG Q24H [facility] Rx#:[id number] Oral 500 / 500 720 / 720 Other: # Voids 2 Date of Last Bowel Movement 07/14/18 Narrative: GENERAL: Well-nourished, well-developed pleasant female patient in NAD. Intractable cough throughout conversation. SKIN: Warm and dry. No rash. HEENT: Normocephalic. Atraumatic. Pupils equal and round. Mucous membranes pink and moist. Posterior oropharynx with mild tonsillar edema/erythema without exudate. NECK: Supple. Trachea midline. Anterior cervical and submandibular tender lymphadenopathy. CARDIOVASCULAR: Regular rate and rhythm. No murmur appreciated. RESPIRATORY: No accessory muscle use. Decreased breath sounds throughout with diminished inspiratory effort, occasional faint expiratory wheezing. Breath sounds equal bilaterally. GASTROINTESTINAL: Abdomen soft, non-tender, nondistended. Normoactive bowel sounds x4. MUSCULOSKELETAL: No obvious deformities. Extremities without clubbing, cyanosis , or edema. NEUROLOGICAL: Awake and alert. No obvious cranial nerve deficits. Moving all extremities spontaneously. Normal speech. PSYCHIATRIC: Appropriate mood and affect; insight and judgment normal. Results - Labs CBC & Chem 7: 07/15/18 10:20 07/15/18 10:20 Laboratory Results - last 24 hr 07/15/18 07/15/18 10:20 10:20 WBC 15.7 H RBC 3.60 L Hgb 10.6 L Hct 32.6 L MCV 90.4 MCH 29.4 MCHC 32.5 RDW 13.4 Plt Count 308 MPV 8.3 Prelim Diff (Auto) Manual diff required Differential Comment . Sodium 137 Potassium 3.9 Chloride 103 Carbon Dioxide 28.3 Anion Gap 6 BUN 22 H Creatinine 1.04 H Estimated GFR 67 L Random Glucose 142 H Calcium 8.9 Microbiology 07/11/18 22:05 Blood - Peripheral Aerobic Blood Culture - Preliminary No growth in 4 days 07/11/18 22:05 Blood - Peripheral Anaerobic Blood Culture - Preliminary No growth in 4 days 07/11/18 22:10 Blood - Peripheral Aerobic Blood Culture - Preliminary No growth in 4 days 07/11/18 22:10 Blood - Peripheral Anaerobic Blood Culture - Preliminary No growth in 4 days 07/13/18 16:08 Throat Group A Streptococcus Screen/Cult - Preliminary No Beta Streptococci isolated at 24 hours 07/12/18 06:15 Clean Catch Urine Urine Culture - Final Escherichia coli - Imaging Chest X-Ray 07/11/18 19:20 CONCLUSION: 1. No acute cardiopulmonary disease. Chest CTA 07/12/18 00:22 CONCLUSION: 1. Negative for pulmonary embolic disease. No lung consolidation or effusion. Soft Tissue Neck CT 07/13/18 00:00 CONCLUSION: Posterior oropharyngeal soft tissue swelling at the level of the tongue base, nonspecific but appears fairly circumferential and most likely on the basis of tonsillitis/pharyngitis. Study is limited by metallic streak artifact. No gross evidence of discrete mass or abscess demonstrated. Assessment and Plan - Assessment (1) Asthma exacerbation Code(s): J45.901 - Unspecified asthma with (acute) exacerbation Status: Acute (2) Upper respiratory infection Code(s): J06.9 - Acute upper respiratory infection, unspecified Status: Acute (3) Chest pain Code(s): R07.9 - Chest pain, unspecified Status: Acute (4) Chronic pain Code(s): G89.29 - Other chronic pain Status: Acute - Plan 53-year-old -[place] female with a past medical history of asthma, lupus and RA who presents to the emergency room with a complaint of one-week shortness of breath, cough, fevers and general malaise. Acute Asthma exacerbation -Continue duonebs q4h kole and prn -Continue steroids, increased IV Solumedrol to 40mg q6h -O2 as needed -slowly improving Upper respiratory infection -Flu negative -Given symptoms, treating empirically for pneumonia with IV Rocephin/Azithro -Follow-up cultures-no growth to date Acute Tonsillitis/Pharyngitis -Exquisite tenderness when palpating neck -CT soft tissue neck shows Posterior oropharyngeal soft tissue swelling at the level of the tongue base, nonspecific but appears fairly circumferential and most likely on the basis of tonsillitis/pharyngitis. No gross evidence of discrete mass or abscess demonstrated -Throat culture negative for strep -Continue on IV steroids as above, allergy to NSAIDs -viscous lidocaine for symptomatic relief Chest pain -Cardiac enzymes negative -Negative for PE; chest x-ray negative -Suspect secondary to coughing -continue Tessalon Perles 100mg tid -no further chest pain Lupus/RA/chronic pain -Restart home hydrocodone. -[facility] Prescription Drug Monitoring Database has been queried and verified prior to prescribing the controlled substance. Hypokalemia -Given KCl replacement -Repeat K 3.8, resolved UTI -Cultures positive for E. Coli -Continue IV Rocephin DVT prophylaxis: SCDs and early ambulation Discharge Planning: Discharge pending further clinical improvement. Possible discharge in next 1-2 days.
[2018-07-15 11:51] LABS: Lymphocytes 7 % (9-44); Metamyelocytes 1 % (0-1); Monocytes 7 % (0-8)
[2018-07-15 11:52] LABS: Platelet Estimate Normal (Normal); Platelet Morphology Normal (Normal); RBC Morphology Normal (Normal)
[2018-07-15] MEDS: Morphine Inj 4 MG/ML Vial IV.PUSH PRN ×3 (13:01→22:57)
[2018-07-15] MEDS: Azithromycin Inj 500 MG in Sodium Chlor 0.9% Inj 250 ML IV.SIG SCH (16:46)
[2018-07-15] MEDS: Benzocaine/Menthol 15 MG/3.6 MG SF Lozenge BUCCAL PRN (22:57)
[2018-07-16] MEDS: Benzonatate 100 MG Capsule PO SCH ×3 (02:11→18:03)
[2018-07-16] MEDS: MethylPREDNISolone Sod Succinate Inj 40 MG/ML Vial IV.PUSH SCH ×4 (04:56→23:36)
[2018-07-16] MEDS: Morphine Inj 4 MG/ML Vial IV.PUSH PRN ×3 (04:56→18:03)
[2018-07-16] MEDS: Benzocaine/Menthol 15 MG/3.6 MG SF Lozenge BUCCAL PRN ×4 (04:56→21:14)
[2018-07-16] MEDS: Senna/Docusate Sodium 8.6/50 MG Tablet PO SCH ×2 (09:15→21:12)
[2018-07-16] MEDS: guaiFENesin 600 MG ER Tablet PO SCH ×2 (09:15→21:12)
[2018-07-16 10:08] LABS: Baso % (Auto) 0.3 % (0.0-2.0); Hematocrit 33.1 % (35.0-46.0); Hemoglobin 10.6 gm/dL (11.6-15.3); Lymph # (Auto) 1.2 th/mm3 (1.0-4.8); Lymph % (Auto) 8.5 % (9.0-44.0); Mean Corpuscular Hemoglobin 28.9 pg (27.0-34.0); Mean Corpuscular Volume 90.5 fL (80.0-100.0); Mean Platelet Volume 8.4 fL (7.0-11.0); Mono # (Auto) 0.9 th/mm3 (0.0-0.9); Mono % (Auto) 5.8 % (0.0-8.0); Neut # (Auto) 12.6 th/mm3 (1.8-7.7); Neut % (Auto) 85.4 % (16.0-70.0); Platelet Count 286 th/mm3 (150-450); Red Blood Count 3.66 mil/mm3 (4.00-5.30); Red Cell Distribution Width 13.8 % (11.6-17.2); White Blood Count 14.7 th/mm3 (4.0-11.0)
[2018-07-16] MEDS ORDERED: Diatrizoate Meglum/Diatrizoate Sod Liq 9 ML UDC PO ONE (10:27)
--- NOTE | 2018-07-16 10:27 | P.PN ---
Subjective Interval history: Follow up for asthma, tonsillitis/pharyngitis, UTI, suspected lupus flare. The patient continues to report diffuse body aches and multiple joint pain which she attributes to her lupus. She also reports new periumbilical and LLQ abdominal pain today. She states she also hasn't had a BM in a couple days. Denies nausea/vomiting. She reports minimal oral intake however RN reports patient eating large amounts of crackers and peanut butter. Otherwise, the patient continues to report sore throat, odynophagia, and shortness of breath. Denies chest pain. Denies any other medical complaints. Physical Exam Vital signs: Vital Signs 07/15/18 11:47 07/15/18 15:17 07/15/18 16:46 Temperature Pulse Rate 99 H 111 H 98 H Respiratory Rate 16 20 16 Blood Pressure 132/64 Pulse Oximetry 97 07/15/18 16:47 07/15/18 19:15 07/15/18 20:00 Temperature 98.2 F 98.4 F Pulse Rate 104 H Respiratory Rate 16 17 Blood Pressure 134/71 Pulse Oximetry 95 07/15/18 20:09 07/15/18 21:04 07/15/18 23:00 Temperature Pulse Rate 92 H Respiratory Rate 18 16 16 Blood Pressure Pulse Oximetry 100 07/15/18 23:23 07/16/18 00:00 07/16/18 02:11 Temperature 98.8 F Pulse Rate 99 H 122 H Respiratory Rate 18 20 16 Blood Pressure 145/75 H Pulse Oximetry 98 07/16/18 04:00 07/16/18 04:01 07/16/18 05:00 Temperature 98.4 F Pulse Rate 99 H 92 H Respiratory Rate 18 16 16 Blood Pressure 129/68 Pulse Oximetry 99 07/16/18 08:11 07/16/18 08:15 Temperature 98.4 F Pulse Rate 85 98 H Respiratory Rate 18 Blood Pressure 114/75 Pulse Oximetry 95 Intake & Output 07/15/18 07/16/18 07/16/18 18:59 06:59 18:59 Intake Total 150 / 150 970 / 970 Balance 150 / 150 970 / 970 Intake: IV 150 / 150 250 / 250 Azithromycin Inj 500 MG In NS 50 / 50 250 / 250 Inj 250 ML @ 250 mls/hr IV.SIG Q24H [facility] Rx#:[id number] Rocephin Inj 1,000 MG In NS Inj 100 / 100 100 ML @ 200 mls/hr IV.SIG Q24H [facility] Rx#:[id number] Oral 720 / 720 Other: # Voids 3 Date of Last Bowel Movement 07/14/18 Narrative: GENERAL: Well-nourished, well-developed pleasant female patient in NAD. Intractable cough throughout conversation. SKIN: Warm and dry. No rash. HEENT: Normocephalic. Atraumatic. Pupils equal and round. Mucous membranes pink and moist. Posterior oropharynx with mild tonsillar edema/erythema without exudate. NECK: Supple. Trachea midline. Anterior cervical and submandibular tender lymphadenopathy. CARDIOVASCULAR: Regular rate and rhythm. No murmur appreciated. RESPIRATORY: No accessory muscle use. Diminished inspiratory effort, otherwise clear to auscultation, no wheezing. Breath sounds equal bilaterally. GASTROINTESTINAL: Abdomen soft, nondistended, mild periumbilical and LLQ TTP. Normoactive bowel sounds x4. MUSCULOSKELETAL: No obvious deformities. Extremities without clubbing, cyanosis , or edema. NEUROLOGICAL: Awake and alert. No obvious cranial nerve deficits. Moving all extremities spontaneously. Normal speech. PSYCHIATRIC: Appropriate mood and affect; insight and judgment normal. Results - Labs CBC & Chem 7: 07/16/18 09:32 07/16/18 09:32 Laboratory Results - last 24 hr 07/15/18 07/15/18 07/16/18 10:20 10:20 09:32 WBC 15.7 H 14.7 H RBC 3.60 L 3.66 L Hgb 10.6 L 10.6 L Hct 32.6 L 33.1 L MCV 90.4 90.5 MCH 29.4 28.9 MCHC 32.5 32.0 RDW 13.4 13.8 Plt Count 308 286 MPV 8.3 8.4 Prelim Diff (Auto) Manual diff required Slide review pending Neut % (Auto) 85.4 H Lymph % (Auto) 8.5 L Gordon % (Auto) 5.8 Eos % (Auto) 0.0 Baso % (Auto) 0.3 Neut # (Auto) 12.6 H Lymph # (Auto) 1.2 Gordon # (Auto) 0.9 Eos # (Auto) 0.0 Baso # (Auto) 0.0 WBC Differential Manual diff final Seg Neuts % (Manual) 84 H Band Neuts % (Manual) 1 Lymphocytes % (Manual) 7 L Monocytes % (Manual) 7 Metamyelocytes % (Man) 1 Abs Neuts (Manual) 13.5 H Differential Comment . . Platelet Estimate Normal Platelet Morphology Normal RBC Morphology Normal Sodium 137 Potassium 3.9 Chloride 103 Carbon Dioxide 28.3 Anion Gap 6 BUN 22 H Creatinine 1.04 H Estimated GFR 67 L Random Glucose 142 H Calcium 8.9 Microbiology 07/13/18 16:08 Throat Group A Streptococcus Screen/Cult - Final No Beta Streptococci isolated. 07/11/18 22:05 Blood - Peripheral Aerobic Blood Culture - Preliminary No growth in 4 days 07/11/18 22:05 Blood - Peripheral Anaerobic Blood Culture - Preliminary No growth in 4 days 07/11/18 22:10 Blood - Peripheral Aerobic Blood Culture - Preliminary No growth in 4 days 07/11/18 22:10 Blood - Peripheral Anaerobic Blood Culture - Preliminary No growth in 4 days - Imaging Chest X-Ray 07/11/18 19:20 CONCLUSION: 1. No acute cardiopulmonary disease. Chest CTA 07/12/18 00:22 CONCLUSION: 1. Negative for pulmonary embolic disease. No lung consolidation or effusion. Soft Tissue Neck CT 07/13/18 00:00 CONCLUSION: Posterior oropharyngeal soft tissue swelling at the level of the tongue base, nonspecific but appears fairly circumferential and most likely on the basis of tonsillitis/pharyngitis. Study is limited by metallic streak artifact. No gross evidence of discrete mass or abscess demonstrated. Assessment and Plan - Assessment (1) Asthma exacerbation Code(s): J45.901 - Unspecified asthma with (acute) exacerbation Status: Acute (2) Upper respiratory infection Code(s): J06.9 - Acute upper respiratory infection, unspecified Status: Acute (3) Chest pain Code(s): R07.9 - Chest pain, unspecified Status: Acute (4) Chronic pain Code(s): G89.29 - Other chronic pain Status: Acute - Plan 53-year-old -[place] female with a past medical history of asthma, lupus and RA who presents to the emergency room with a complaint of one-week shortness of breath, cough, fevers and general malaise. Acute Asthma exacerbation -Continue duonebs q6h kole and prn -Continue steroids, increased IV Solumedrol to 40mg q6h -O2 as needed -improving, O2 sat stable on room air today Upper respiratory infection -Flu negative -Given symptoms, treating empirically for pneumonia with IV Rocephin/Azithro -Follow-up cultures-no growth to date Acute Tonsillitis/Pharyngitis -Exquisite tenderness when palpating neck -CT soft tissue neck shows Posterior oropharyngeal soft tissue swelling at the level of the tongue base, nonspecific but appears fairly circumferential and most likely on the basis of tonsillitis/pharyngitis. No gross evidence of discrete mass or abscess demonstrated -Throat culture negative for strep -Continue on IV steroids as above, allergy to NSAIDs -viscous lidocaine for symptomatic relief -still with significant odynophagia and decreased oral intake 2/2 pain Abdominal Pain -patient reporting new abdominal pain today 07/16 -check abdominal CT -possibly opiate induced constipation, continue prince-colace bid, start miralax daily -zofran prn -monitor for improvement -update 1630hrs: CT abdomen negative for any acute abdominal findings Chest pain -Cardiac enzymes negative -Negative for PE; chest x-ray negative -Suspect secondary to coughing -continue Tessalon Perles 100mg tid -no further chest pain Lupus/RA Exacerbation: with hx of chronic pain -Restarted home hydrocodone. -[email or web address] Prescription Drug Monitoring Database has been queried and verified prior to prescribing the controlled substance. -continue IV morphine for breakthrough pain -already on steroids as above -consult PT/OT Hypokalemia -Given KCl replacement -Repeat K 3.8, resolved UTI -Cultures positive for E. Coli -Continue IV Rocephin Atelectasis -seen on abdominal CT -ordered incentive spirometer -encouraged ambulation DVT prophylaxis: SCDs and early ambulation Discharge Planning: Discharge pending further clinical improvement. Possible discharge in next 1-2 days. Await PT/OT eval. (1) Asthma exacerbation Qualifiers: Asthma severity: unspecified severity Asthma persistence: unspecified Qualified Code(s): J45.901 - Unspecified asthma with (acute) exacerbation (2) Upper respiratory infection Qualifiers: URI type: unspecified URI Qualified Code(s): J06.9 - Acute upper respiratory infection, unspecified
[2018-07-16 10:33] LABS: Calcium 8.4 mg/dL (8.5-10.1); Carbon Dioxide 29.3 meq/L (21.0-32.0); Potassium 4.7 meq/L (3.5-5.1)
[2018-07-16 11:41] LABS: Lymphocytes 13 % (9-44); Monocytes 3 % (0-8); Myelocytes 4 % (0-0); Platelet Estimate Normal (Normal); Platelet Morphology Normal (Normal)
--- NOTE | 2018-07-16 15:01 | CT ---
EXAM DATE: 07/16/2018 2:51 PM EST AGE/SEX: 53 years / Female INDICATIONS: Left lower quadrant pain. CLINICAL DATA: This is the patient's initial encounter. Patient reports that signs and symptoms have been present for 1 day and indicates a pain score of 10/10. MEDICAL/SURGICAL HISTORY: Asthma. Lupus. Rheumatoid arthritis. None. ORAL CONTRAST: Prescribed oral contrast ingested. RADIATION DOSE: 15.85 CTDI (mGy) [place] [facility] [place] 10/[place]/2017. . TECHNIQUE: Multiple contiguous axial images were obtained through the abdomen and pelvis following b olus infusion of 95 ml Omnipaque 350 (iohexol) nonionic water-soluble contrast as a single exam dos e. Prescribed oral contrast ingested. Using automated exposure control and adjustment of the mA and/ or kV according to patient size, radiation dose was kept as low as reasonably achievable to obtain op timal diagnostic quality images. DICOM format image data is available electronically for review and comparison. FINDINGS: Imaging through the lung bases demonstrates small areas of platelike atelectasis in both lower lobes. The appearance of the liver, spleen, pancreas, adrenal glands and kidneys is within normal limits. There is no retroperitoneal lymphadenopathy. The abdominal aorta is normal in caliber. No free air fr ee fluid is seen within the upper abdomen. There is no free fluid within the pelvis. No iliac or inguinal adenopathy is present. The visualized loops of small and large bowel within the pelvis are unremarkable. The appendix is visualized and myranda ears normal in caliber. The visualized osseous structures demonstrate degenerative changes but are otherwise intact. CONCLUSION: 1. Small areas of platelike atelectasis in the lung bases. 2. The patient is post cholecystectomy. 3. No definite abnormality to explain the patient's left lower quadrant pain is identified. Electronically signed by: Krzysztof Evans MD 07/16/2018 3:00 PM EST
[2018-07-16] MEDS: Azithromycin Inj 500 MG in Sodium Chlor 0.9% Inj 250 ML IV.SIG SCH (16:28)
[2018-07-16] MEDS: Polyethylene Glycol 3350 17 GM Packet PO SCH (18:01)
[2018-07-17] MEDS: Morphine Inj 4 MG/ML Vial IV.PUSH PRN ×2 (01:29→10:51)
[2018-07-17] MEDS: Benzocaine/Menthol 15 MG/3.6 MG SF Lozenge BUCCAL PRN ×5 (03:01→20:49)
[2018-07-17] MEDS: Benzonatate 100 MG Capsule PO SCH ×4 (03:01→17:31)
[2018-07-17] MEDS: MethylPREDNISolone Sod Succinate Inj 40 MG/ML Vial IV.PUSH SCH ×3 (05:34→17:23)
[2018-07-17] MEDS: Senna/Docusate Sodium 8.6/50 MG Tablet PO SCH ×3 (07:34→20:48)
[2018-07-17] MEDS: Polyethylene Glycol 3350 17 GM Packet PO SCH ×2 (07:34→09:53)
[2018-07-17] MEDS: guaiFENesin 600 MG ER Tablet PO SCH ×3 (07:34→20:49)
[2018-07-17] MEDS: Morphine Inj 4 MG/ML Vial IM PRN (07:35)
--- NOTE | 2018-07-17 09:43 | P.PN ---
Subjective Interval history: Follow up for asthma, tonsillitis/pharyngitis, UTI, suspected lupus flare. The patient reports continued diffuse body aches and joint pain again today. She states she has been ambulating to the bedside commode and sometimes to the restroom. She reports continued odynophagia/dysphagia, however is tolerating oral intake, witness by nursing staff. O2 sat remains stable on room air. No other medical complaints at this time. Physical Exam Vital signs: Vital Signs 07/16/18 11:22 07/16/18 13:22 07/16/18 16:08 Temperature 98.2 F 98.5 F Pulse Rate 92 H 80 103 H Respiratory Rate 20 16 Blood Pressure 123/66 132/64 Pulse Oximetry 96 98 07/16/18 19:48 07/16/18 20:00 07/16/18 21:09 Temperature 98.7 F Pulse Rate 100 H 114 H Respiratory Rate 18 18 19 Blood Pressure 142/75 H Pulse Oximetry 100 95 07/16/18 21:39 07/16/18 23:56 07/17/18 03:14 Temperature 98.6 F Pulse Rate 95 H 91 H Respiratory Rate 16 18 18 Blood Pressure 149/70 H Pulse Oximetry 95 07/17/18 04:00 07/17/18 05:34 07/17/18 07:41 Temperature 97.7 F Pulse Rate 105 H 91 H Respiratory Rate 18 18 18 Blood Pressure 135/76 Pulse Oximetry 99 07/17/18 07:43 07/17/18 08:00 Temperature 98.5 F Pulse Rate 108 H Respiratory Rate 16 Blood Pressure 142/75 H Pulse Oximetry 99 95 Intake & Output 07/16/18 07/17/18 07/17/18 18:59 06:59 18:59 Intake Total 350 / 350 Balance 350 / 350 Intake: IV 350 / 350 Azithromycin Inj 500 MG In NS 250 / 250 Inj 250 ML @ 250 mls/hr IV.SIG Q24H KOLE Rx#:[id number] Rocephin Inj 1,000 MG In NS Inj 100 / 100 100 ML @ 200 mls/hr IV.SIG Q24H KOLE Rx#:[id number] Other: Date of Last Bowel Movement 07/14/18 Narrative: GENERAL: Well-nourished, well-developed female patient in [facility]. SKIN: Warm and dry. No rash. HEENT: Normocephalic. Atraumatic. Pupils equal and round. Mucous membranes pink and moist. Posterior oropharynx with mild tonsillar edema/erythema without exudate. NECK: Supple. Trachea midline. Anterior cervical and submandibular tender lymphadenopathy. CARDIOVASCULAR: Regular rate and rhythm. No murmur appreciated. RESPIRATORY: No accessory muscle use. Clear to auscultation, no wheezing. Breath sounds equal bilaterally. GASTROINTESTINAL: Abdomen soft, nondistended, nontender today. Normoactive bowel sounds x4. MUSCULOSKELETAL: No obvious deformities. Extremities without clubbing, cyanosis , or edema. Left lower extremity brace in place. NEUROLOGICAL: Awake and alert. No obvious cranial nerve deficits. Moving all extremities spontaneously. Normal speech. PSYCHIATRIC: Appropriate mood and affect; insight and judgment normal. Results - Labs CBC & Chem 7: 07/16/18 09:32 07/16/18 09:32 Laboratory Results - last 24 hr 07/13/18 07/16/18 07/16/18 06:30 09:32 09:32 WBC 14.7 H RBC 3.66 L Hgb 10.6 L Hct 33.1 L MCV 90.5 MCH 28.9 MCHC 32.0 RDW 13.8 Plt Count 286 MPV 8.4 Prelim Diff (Auto) Slide review pending Neut % (Auto) 85.4 H Lymph % (Auto) 8.5 L [place] % (Auto) 5.8 Eos % (Auto) 0.0 Baso % (Auto) 0.3 Neut # (Auto) 12.6 H Lymph # (Auto) 1.2 [place] # (Auto) 0.9 Eos # (Auto) 0.0 Baso # (Auto) 0.0 WBC Differential Manual diff final Seg Neuts % (Manual) 76 H Band Neuts % (Manual) 4 Lymphocytes % (Manual) 13 Monocytes % (Manual) 3 Myelocytes % (Man) 4 H Abs Neuts (Manual) 12.3 H Differential Comment . Platelet Estimate Normal Platelet Morphology Normal Sodium 138 Potassium 4.7 D Chloride 103 Carbon Dioxide 29.3 Anion Gap 6 BUN 23 H Creatinine 1.03 H Estimated GFR 68 L Random Glucose 144 H Calcium 8.4 L M. pneumoniae Interp . Mycoplasma pneumon IgG Equivocal Mycoplasma pneumon IgM Negative Microbiology 07/11/18 22:05 Blood - Peripheral Aerobic Blood Culture - Final No growth in 5 days 07/11/18 22:05 Blood - Peripheral Anaerobic Blood Culture - Final No growth in 5 days 07/11/18 22:10 Blood - Peripheral Aerobic Blood Culture - Final No growth in 5 days 07/11/18 22:10 Blood - Peripheral Anaerobic Blood Culture - Final No growth in 5 days - Imaging Impressions Abdomen/Pelvis CT 07/16/18 00:00 CONCLUSION: 1. Small areas of platelike atelectasis in the lung bases. 2. The patient is post cholecystectomy. 3. No definite abnormality to explain the patient's left lower quadrant pain is identified. Assessment and Plan - Assessment (1) Asthma exacerbation Code(s): J45.901 - Unspecified asthma with (acute) exacerbation Status: Acute (2) Upper respiratory infection Code(s): J06.9 - Acute upper respiratory infection, unspecified Status: Acute (3) Chest pain Code(s): R07.9 - Chest pain, unspecified Status: Acute (4) Chronic pain Code(s): G89.29 - Other chronic pain Status: Acute - Plan 53-year-old -[place] female with a past medical history of asthma, lupus and RA who presents to the emergency room with a complaint of one-week shortness of breath, cough, fevers and general malaise. Acute Asthma exacerbation -Continue duonebs q6h kole and prn -Continue steroids, increased IV Solumedrol to 40mg q6h -O2 as needed -improving, O2 sat stable on room air today Upper respiratory infection -Flu negative -Given symptoms, treating empirically for pneumonia with IV Rocephin/Azithro -Follow-up cultures-no growth to date Acute Tonsillitis/Pharyngitis -Exquisite tenderness when palpating neck -CT soft tissue neck shows Posterior oropharyngeal soft tissue swelling at the level of the tongue base, nonspecific but appears fairly circumferential and most likely on the basis of tonsillitis/pharyngitis. No gross evidence of discrete mass or abscess demonstrated -Throat culture negative for strep -Continue on IV steroids as above, allergy to NSAIDs -viscous lidocaine for symptomatic relief -still with significant odynophagia and decreased oral intake 2/2 pain -slowly improving Abdominal Pain -patient reporting new abdominal pain on 07/16 -abdominal CT unremarkable -possibly opiate induced constipation, continue prince-colace bid, started miralax daily -zofran prn -monitor for improvement Chest pain -Cardiac enzymes negative -Negative for PE; chest x-ray negative -Suspect secondary to coughing -continue Tessalon Perles 100mg tid -no further chest pain Lupus/RA Exacerbation: with hx of chronic pain -Restarted home hydrocodone. -[facility] Prescription Drug Monitoring Database has been queried and verified prior to prescribing the controlled substance. -continue IV morphine for breakthrough pain -already on steroids as above -consult PT/OT Hypokalemia -Given KCl replacement -Repeat K 3.8, resolved UTI -Cultures positive for E. Coli -Continue IV Rocephin Atelectasis -seen on abdominal CT -ordered incentive spirometer -encouraged ambulation DVT prophylaxis: SCDs and early ambulation Discharge Planning: Discharge pending further clinical improvement. Hopefully discharge on 07/18. Await PT/OT eval. (1) Asthma exacerbation Qualifiers: Asthma severity: unspecified severity Asthma persistence: unspecified Qualified Code(s): J45.901 - Unspecified asthma with (acute) exacerbation (2) Upper respiratory infection Qualifiers: URI type: unspecified URI Qualified Code(s): J06.9 - Acute upper respiratory infection, unspecified
[2018-07-17] MEDS: Morphine Sulfate Inj 2 MG/ML Vial IV.PUSH PRN ×2 (15:05→19:21)
[2018-07-17] MEDS: Azithromycin Inj 500 MG in Sodium Chlor 0.9% Inj 250 ML IV.SIG SCH (15:05)
[2018-07-18 00:01] VITALS: BP 137/73; TEMP 98.5
[2018-07-18] MEDS: Benzonatate 100 MG Capsule PO SCH (02:01)
[2018-07-18] MEDS: MethylPREDNISolone Sod Succinate Inj 40 MG/ML Vial IV.PUSH SCH ×2 (06:00)
[2018-07-18] MEDS: Benzocaine/Menthol 15 MG/3.6 MG SF Lozenge BUCCAL PRN (06:07)
[2018-07-18 07:42] VITALS: PULSE 76; RESP 18; O2SAT 98
[2018-07-18] MEDS ORDERED: predniSONE 20 MG Tablet PO SCH (09:00)
--- NOTE | 2018-07-18 09:10 | P.DS ---
Date of admission: 07/12/18 01:59 Primary care physician: Erika Mead DO Attending physician on discharge: Krzysztof Franks Anticipated date of discharge: 07/18/18 Brief History from admission: Patient is a 53-year-old -[place] female with a past medical history of asthma, lupus and RA who presents to the emergency room with a complaint of one- week shortness of breath, cough, fevers and general malaise. She has had yellow sputum. Also reports right-sided chest pain that is intermittent over the past month. Chest pain is not worse with exertion. Not currently hurting. She tells me she is very short of breath this morning and has been coughing almost nonstop. Significant general body aches-these are chronic due to her RA and lupus however they seem to be worse right now. Intermittent nausea but no vomiting. Denies recent diarrhea. She has had no sick contacts or recent travel. She does not take inhalers for her chronic asthma as she cannot afford them. Patient update on day of discharge: Follow up for asthma, tonsillitis/pharyngitis, UTI, suspected lupus flare. The patient reports improvement of her voice and dysphagia. She has been tolerating oral intake. O2 sat stable on room air. No further wheezing. 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 The patient does see Dr. Mead regularly for Carroll prescription. DS: Diagnosis - Discharge Diagnosis (1) Asthma exacerbation Status: Acute (2) Upper respiratory infection Status: Acute (3) Chest pain Status: Acute (4) Chronic pain Status: Acute DS: Medications - Discharge Medications Prescriptions: RX: cefuroxime axetil 500 mg PO Q12HR #3 tab RX: cyclobenzaprine 10 mg PO TID PRN 3 Days #9 tab PRN Reason: muscle spasms RX: hydrocodone-acetaminophen 1 tab PO Q6H PRN 3 Days #12 tab PRN Reason: Acute Pain RX: prednisone 20 mg PO BID #10 tab DS: Summary Hospital Course: 53-year-old -[place] female with a past medical history of asthma, lupus and RA who presents to the emergency room with a complaint of one-week shortness of breath, cough, fevers and general malaise. Acute Asthma exacerbation, URI: Flu negative. CXR unremarkable. Blood cultures with no growth x5days. +wheezing on exam. Given duonebs q6h kole and prn. Given steroids with IV Solumedrol to 40mg q6h. Given symptoms, treating empirically for pneumonia with IV Rocephin/Azithro. O2 sat stable on room air. Wheezing resolved. Stable. Discharge on prednisone taper and Ceftin to complete 1 week abx. Acute Tonsillitis/Pharyngitis: Exquisite tenderness when palpating neck. CT soft tissue neck shows posterior oropharyngeal soft tissue swelling at the level of the tongue base, nonspecific but appears fairly circumferential and most likely on the basis of tonsillitis/pharyngitis. No gross evidence of discrete mass or abscess demonstrated. Throat culture negative for strep. Given IV steroids as above, allergy to NSAIDs. Lozenges prn. Improved throughout admission. Patient tolerating oral intake. Stable for discharge. Abdominal Pain: patient reported new abdominal pain on 07/16. Abdominal CT unremarkable. Possibly opiate induced constipation, continue prince-colace bid, started miralax daily. Patient had BM. Tolerating oral intake. Stable for discharge. Chest pain: Cardiac enzymes negative. CTA Negative for PE; chest x-ray negative. Suspect secondary to coughing. Given Tessalon Perles 100mg tid. No further chest pains Lupus/RA Exacerbation: with hx of chronic pain. Restarted home hydrocodone. [place] Prescription Drug Monitoring Database has been queried and verified prior to prescribing the controlled substance. Given IV morphine for breakthrough pain. Already on steroids as above. Consult PT/OT, patient unmotivated, although has been ambulating to the restroom independently throughout admission. Strongly encouraged establishing follow up with rheumatology and pain management. Given 3 day course of Carroll at discharge. Looked up on [employer], patient last filled 13day supply of Carroll on 07/04, prescribed by Dr. Mead. Continue outpatient f/up. UTI: Cultures positive for E. Coli. S/p course of IV Rocephin. Atelectasis: seen on abdominal CT. Ordered incentive spirometer. Encouraged ambulation - Time Spent with Patient Total time spent providing and/or coordinating discharge services: Less than 30 minutes - Quality: VTE Deep Vein Thrombosis/Pulmonary Embolism Present on Admission: No Exam Vital signs: Vital Signs 07/17/18 12:00 07/17/18 13:17 07/17/18 15:54 Temperature 98.7 F Pulse Rate 90 98 H 99 H Respiratory Rate 16 18 16 Blood Pressure 118/68 139/71 Pulse Oximetry 94 L 96 07/17/18 19:35 07/17/18 20:00 07/17/18 20:51 Temperature 98.7 F Pulse Rate 95 H 104 H Respiratory Rate 18 16 17 Blood Pressure 159/85 H Pulse Oximetry 98 99 07/17/18 23:59 07/18/18 00:00 07/18/18 01:30 Temperature 98.5 F Pulse Rate 90 104 H Respiratory Rate 17 16 18 Blood Pressure 137/73 Pulse Oximetry 99 07/18/18 06:07 07/18/18 07:41 07/18/18 07:42 Temperature Pulse Rate 76 Respiratory Rate 16 18 Blood Pressure Pulse Oximetry 98 Intake & Output 07/17/18 07/18/18 07/18/18 18:59 06:59 18:59 Intake Total 850 / 850 Balance 850 / 850 Intake: IV 350 / 350 Azithromycin Inj 500 MG In NS 250 / 250 Inj 250 ML @ 250 mls/hr IV.SIG Q24H KOLE Rx#:[id number] Rocephin Inj 1,000 MG In NS Inj 100 / 100 100 ML @ 200 mls/hr IV.SIG Q24H KOLE Rx#:[id number] Oral 500 / 500 Other: Date of Last Bowel Movement 07/17/18 Narrative: GENERAL: Well-nourished, well-developed female patient in [facility]. SKIN: Warm and dry. No rash. HEENT: Normocephalic. Atraumatic. Pupils equal and round. Mucous membranes pink and moist. NECK: Supple. Trachea midline. Anterior cervical and submandibular lymphadenopathy, much improved. CARDIOVASCULAR: Regular rate and rhythm. No murmur appreciated. RESPIRATORY: No accessory muscle use. Clear to auscultation, no wheezing. Breath sounds equal bilaterally. GASTROINTESTINAL: Abdomen soft, nondistended, nontender. Normoactive bowel sounds x4. MUSCULOSKELETAL: No obvious deformities. Extremities without clubbing, cyanosis , or edema. Left lower extremity CKS in place. NEUROLOGICAL: Awake and alert. No obvious cranial nerve deficits. Moving all extremities spontaneously. Normal speech. Results Procedures completed during hospitalization: None. - Impressions ITS Impressions Chest X-Ray 07/11/18 19:20 CONCLUSION: 1. No acute cardiopulmonary disease. Chest CTA 07/12/18 00:22 CONCLUSION: 1. Negative for pulmonary embolic disease. No lung consolidation or effusion. Soft Tissue Neck CT 07/13/18 00:00 CONCLUSION: Posterior oropharyngeal soft tissue swelling at the level of the tongue base, nonspecific but appears fairly circumferential and most likely on the basis of tonsillitis/pharyngitis. Study is limited by metallic streak artifact. No gross evidence of discrete mass or abscess demonstrated. Abdomen/Pelvis CT 07/16/18 00:00 CONCLUSION: 1. Small areas of platelike atelectasis in the lung bases. 2. The patient is post cholecystectomy. 3. No definite abnormality to explain the patient's left lower quadrant pain is identified. Discharge Plan - Discharge Disposition Patient Disposition: 01 Discharge Home - Discharge Condition Condition: Stable - Discharge Order Discharge Orders: Discharge Order (Routine); Ordered 07/18/18 Ordered By: Philly Martin - Discharge Details Anticipated Discharge Date: 07/18/18 - Physicians Team Primary Care Provider: Erika Mead Attending Provider: Krzysztof Franks
[2018-07-18] MEDS: Polyethylene Glycol 3350 17 GM Packet PO SCH (09:24)
[2018-07-18] MEDS: Senna/Docusate Sodium 8.6/50 MG Tablet PO SCH (09:25)
[2018-07-18] MEDS: guaiFENesin 600 MG ER Tablet PO SCH (09:25)
== END 2018-07-18 09:28 | disposition home or self-care (01) ==
LOC: NEDA 18:41 → NEPD 18:41 → NEPHCDU 07-12 05:53
PROVIDERS: ADMIT Hospitalist; ATTEND Hospitalist
DX: E86.0 Dehydration; M54.9 Dorsalgia, unspecified; J03.90 Acute tonsillitis, unspecified; G89.29 Other chronic pain; R00.0 Tachycardia, unspecified; J98.11 Atelectasis; M32.9 Systemic lupus erythematosus, unspecified; R82.4 Acetonuria; R10.33 Periumbilical pain; R13.10 Dysphagia, unspecified; M06.9 Rheumatoid arthritis, unspecified; G43.909 Migraine, unspecified, not intractable, without status migrainosus; B96.20 Unspecified Escherichia coli [E. coli] as the cause of diseases classified elsewhere; R10.32 Left lower quadrant pain; N39.0 Urinary tract infection, site not specified; E87.6 Hypokalemia; R53.81 Other malaise; J45.901 Unspecified asthma with (acute) exacerbation; R19.5 Other fecal abnormalities